=== PATIENT | male | born 1940 | race Caucasian/White ===

== ENCOUNTER 2017-03-29 11:07 | Inpatient (IN) | payer MEDICARE, OTHER ==
[2017-03-29 11:19] VITALS: BMI 27.4
[2017-03-29] MEDS ORDERED: ASPIRIN COATED 81 MG TABLET.EC PO ONE (11:56)
--- NOTE | 2017-03-29 11:56 | PDOC ---
History of Present Illness - General Chief Complaint: Chest Pain Stated Complaint: CHEST PAIN Time Seen by Provider: 03/29/17 11:26 History Source: Patient, Family Exam Limitations: No Limitations - History of Present Illness Initial Comments: 03/29/17 11:43 The patient is a 76M with a PMH of HTN, DM, [place] s/p CABG in 2006 who presents to the ED with CP which started at 0830 this morning. The pain is located on the L side of his chest, is described as pressure, unsure if there is radiation, 8/10 and does not get better or worse with anything. The patient states that last week he had a similar episode of CP which resolved after an hour. He states that this pain is similar to the ID he had in the past. The patient also endorsed numbness in the L arm during this episode as well as diaphoresis and nausea. The patient states that he sees Dr. Robertson and had an echo done last week which was normal. Past History - Past Medical History Allergies/Adverse Reactions: Allergies Allergy/AdvReac Type Severity Reaction Status Date / Time No Known Allergies Allergy Verified 03/29/17 11:15 Cardiac Disorders: Yes (cad) Diabetes: Yes (niddm) HTN: Yes - Surgical History Cardiac Surgery: Yes (cabg, stents x2) - Suicide/Smoking/Psychosocial Hx Smoking History: Former smoker Have you smoked in the past 12 months: Yes Number of Cigarettes Smoked Daily: 5 If you are a former smoker, when did you quit?: 5 Information on smoking cessation initiated: Yes 'Breaking Loose' booklet given: 03/29/17 Hx Alcohol Use: No Drug/Substance Use Hx: No Review of Systems - Review of Systems Able to Perform ROS?: Yes Is the patient limited Divehi proficient: No Constitutional: No: Chills, Fever HEENTM: No: Eye Pain, Blurred Vision Respiratory: Yes: Shortness of Breath. No: Cough Cardiac (ROS): Yes: Chest Pain, Other (chest pressure) ABD/GI: No: Nausea, Vomiting : No: Burning, Dysuria, Discharge Integumentary: No: Lesions, Rash Neurological: Yes: Numbness (in L arm). No: Headache, Tingling, Weakness *Physical Exam - Vital Signs Last Vital Signs Temp Pulse Resp BP Pulse Ox 98.3 F 54 L 18 133/68 100 03/29/17 11:15 03/29/17 11:15 03/29/17 11:15 03/29/17 11:15 03/29/17 11:15 - Physical Exam General Appearance: Yes: Nourished, Appropriately Dressed. No: Apparent Distress HEENT: positive: Normal Voice, Hearing Grossly Normal Respiratory/Chest: positive: Lungs Clear, Normal Breath Sounds. negative: Chest Tender, Respiratory Distress, Accessory Muscle Use Cardiovascular: positive: Regular Rhythm, Regular Rate, S1, S2. negative: Diastolic Murmur, Systolic Murmur Gastrointestinal/Abdominal: positive: Flat, Soft. negative: Tender, Distended, Guarding, Rebound, Tenderness Musculoskeletal: negative: CVA Tenderness, CVA Tenderness (R), CVA Tenderness (L ) Extremity: positive: Normal Inspection. negative: Coldness, Swelling Integumentary: positive: Dry, Warm. negative: Clammy, Diaphoresis Neurologic: positive: Fully Oriented, Alert, Normal Mood/Affect, Normal Response Heart Score/ECG Review - ECG Impressions Comment:: 03/29/17 12:07 Sinus bradycardia with q waves in V1-V3. Rate 52 No previous EKG to compare to. ED Treatment Course - LABORATORY CBC & Chemistry Diagram: 03/29/17 11:55 - RADIOLOGY Radiology Studies Ordered: Category Date Time Status CHEST X-RAY PORTABLE* [RAD] Stat Radiology 03/29/17 11:37 Ordered Medical Decision Making - Medical Decision Making 03/29/17 12:08 The patient is a 76M with a PMH of ID in 2006 s/p CABG, DM, HTN who presents with CP since 830 this morning which is slowly resolving. I am concerned for ACS and will order the following: - EKG - CBC - CMP - Cardiac profile - CXR I will reassess when these return. The patient's HEART score is 6 without troponin's considered. 03/29/17 12:33 Trop 0.02. HEART score remains at 6, moderate risk. Dr. Robertson will be paged for recs. 03/29/17 12:39 Dr. Robertson would like the patient admitted to tele with Dr. Lane consulted for cardiology. *DC/Admit/Observation/Transfer Diagnosis at time of Disposition: Chest pain Qualifiers: Chest pain type: chest pain due to myocardial ischemia Ischemic chest pain type : other angina pectoris type Qualified Code(s): I20.8 - Other forms of angina pectoris - Referrals
[2017-03-29] MEDS ORDERED: NITROGLYCERIN SUBLINGUAL 1/150 0.4 MG TAB SL ONE (11:58)
[2017-03-29 12:16] LABS: BASOPHIL 0.6 % (0-2.0); EOSINOPHIL 1.5 % (0-4.5); MCH 27.4 pg (25.7-33.7); MCHC 31.4 g/dl (32.0-35.9); MEAN CELL VOLUME 87.2 fl (80-96); MEAN PLT VOLUME 9.8 fl (7.5-11.1); NEUTROPHILS 68.5 % (42.8-82.8); PLATELET COUNT 222 K/MM3 (134-434); RDW 16.4 % (11.9-15.9); WHITE BLOOD COUNT 7.3 K/mm3 (4.0-10.0)
[2017-03-29 12:26] LABS: TROPONIN I 0.02 ng/ml (0.00-0.05)
[2017-03-29 12:27] LABS: CPK 123 IU/L (39-308)
[2017-03-29] MEDS ORDERED: ASPIRIN 325 MG TABLET ONE (12:32)
--- NOTE | 2017-03-29 12:59 | PDOC ---
Attending Attestation - Resident Resident Name: Konstantin Trent - ED Attending Attestation I have performed the following: I have examined & evaluated the patient, The case was reviewed & discussed with the resident, I agree w/resident's findings & plan, Exceptions are as noted - HPI HPI: 03/29/17 12:57 76 M with HTN, DM, [place] s/p CABG in 2006 presenting to ER with 1 day of midsternal chest pressure. Pt denies SOB. States that the pain is similar to his prior CO. No F/C. Deneis pleuritic or exertional component. No cough. No leg swelling. No recent travel/immobilization. No orthopnea. - Physicial Exam PE: 03/29/17 12:58 "GENERAL: Awake, alert, and fully oriented, in no acute distress HEAD: No signs of trauma EYES: PERRLA, EOMI, sclera anicteric, conjunctiva clear ENT: Auricles normal inspection, hearing grossly normal, nares patent, oropharynx clear without exudates. Moist mucosa NECK: Normal ROM, supple, no lymphadenopathy, JVD, or masses LUNGS: Breath sounds equal, clear to auscultation bilaterally. No wheezes, and no crackles HEART: Regular rate and rhythm, normal S1 and S2, no murmurs, rubs or gallops ABDOMEN: Soft, nontender, normoactive bowel sounds. No guarding, no rebound. No masses EXTREMITIES: Normal range of motion, no edema. No clubbing or cyanosis. No cords, erythema, or tenderness NEUROLOGICAL: Cranial nerves II through XII grossly intact. Normal speech, normal gait SKIN: Warm, Dry, normal turgor, no rashes or lesions noted. " - Medical Decision Making 03/29/17 12:58 76 M with chest pressure at rest, concerning for unstable angina/ACS. EKG today with no acute ischemic changes. PE unlikely as pt with no SOB, no hypoxia or tachycardia. Dissection unlikely as pt is midsternal, non-radiating. - Labs, trop - CXR - Call pt's coil builder, Dr. Lane - Admit tele
[2017-03-29 13:36] LABS: ALBUMIN 3.2 g/dl (3.4-5.0); ALK PHOS 60 U/L (45-117); ANION GAP 8 (8-16); BILIRUBIN,TOTAL 0.3 mg/dL (0.2-1.0); CO2 22 mmol/L (21-32); CREATININE 1.5 mg/dL (0.7-1.3); GLUCOSE,RANDOM 175 mg/dL (74-106); SGPT/ALT 15 U/L (12-78); TOT PROT 6.5 g/dl (6.4-8.2)
[2017-03-29 13:39] LABS: SGOT/AST 20 U/L (15-37)
[2017-03-29] MEDS ORDERED: SODIUM CHLORIDE 0.9% 1000 ML INFUS.BAG IV ONE (13:56)
--- NOTE | 2017-03-29 14:47 | CON.CARD ---
Consult Consult Specialty:: Cardiology Referred by:: Howard Robertsno Reason for Consultation:: Chest pain - History of Present Illness Chief Complaint: Chest pain History of Present Illness: 76 year old male with a pmhx of htn, dm, mild CKD, and CAD s/p CABG in 2006 with possible stent 2 years ago (in [place]) who presents with chest pain. This morning the patient developed acute left sided crushing chest pain. Pain was non-radiating and lasted 20 minutes or so. Pain described as a weight on his chest. Took an imdur cause has them from before and helped alleviate the pain. Currently comfortable. No sob, palpitations. No pnd, orthopnea, or edema. To note, reports that a couple weeks ago had similar episode but not as severe. Also notes that over last few months has been feeling more short of breath with activity. - History Source History Provided By: Patient, Family Member, Medical Record - Past Medical History Cardio/Vascular: Yes: CAD, HTN Endocrine: Yes: Diabetes Mellitus - Past Surgical History Past Surgical History: Yes: CABG - Alcohol/Substance Use Hx Alcohol Use: No - Smoking History Smoking history: Former smoker Have you smoked in the past 12 months: Yes Aproximately how many cigarettes per day: 5 If you are a former smoker, when did you quit?: 5 Home Medications - Allergies Allergies/Adverse Reactions: Allergies Allergy/AdvReac Type Severity Reaction Status Date / Time No Known Allergies Allergy Verified 03/29/17 11:15 - Home Medications Home Medications: Ambulatory Orders Enalapril Maleate 2.5 mg PO DAILY 03/29/17 Iron 325 mg PO BID 03/29/17 Metoprolol Succinate [Toprol Xl] 100 mg PO DAILY 03/29/17 Sitagliptin Phos/Metformin HCl [Janumet 50-500 mg Tablet] 1 each PO DAILY Vital Signs: Vital Signs Temperature 98.3 F 03/29/17 11:15 Pulse Rate 49 L 03/29/17 13:42 Respiratory Rate 18 03/29/17 13:42 Blood Pressure 121/54 03/29/17 13:42 O2 Sat by Pulse Oximetry (%) 100 03/29/17 13:42 Constitutional: Yes: No Distress Neck: Yes: Supple Respiratory: Yes: CTA Bilaterally Gastrointestinal: Yes: Normal Bowel Sounds, Soft Cardiovascular: Yes: WNL JVD: No Carotid Bruit: No Heart Sounds: Yes: S1, S2 Murmur: No: Systolic Murmur Extremities: Yes: WNL Edema: No - Other Data sinus rhythm at 52bpm, nl axis, anteroseptal infarct pattern, no acute ekg changes. Echo: Report Reviewed Imaging - Results Chest X-ray: Report Reviewed EKG: Image Reviewed Assessment/Plan 76 year old male with a pmhx of htn, dm, mild CKD, and CAD s/p CABG in 2006 with possible stent 2 years ago (in [place]) who presents with chest pain. -EKG with no acute ischemic changes Echocardiogram as outpatient on 03/03/17 with reported normal LVEF and no significant valve disease. Would admit to telemetry Aspirin 81mg daily Start atorvastatin 40mg daily unless contraindicated. Trend cardiac enzymes which are negative first set. Restart home metoprolol dose Hold enalapril Admit to telemetry but with plan for transfer to [facility] for possible cardiac cath. Discussed benefits and risks including not limited to bleeding, infection, vascular damage, allergy, renal damage, heart attack, stroke, , and emergent surgery. Hold metformin
--- NOTE | 2017-03-29 15:09 | EKG ---
Test Reason : Blood Pressure : / mmHG Vent. Rate : 052 BPM Atrial Rate : 052 BPM P-R Int : 128 ms QRS Dur : 086 ms QT Int : 450 ms P-R-T Axes : 009 008 044 degrees QTc Int : 418 ms SINUS BRADYCARDIA WITH SINUS ARRHYTHMIA CANNOT RULE OUT ANTEROSEPTAL INFARCT , AGE UNDETERMINED ABNORMAL ECG NO PREVIOUS ECGS AVAILABLE Confirmed by WILL SHAH MD ([id number]) on 03/29/2017 3:09:10 PM Referred By: Confirmed By:WILL SHAH MD
--- NOTE | 2017-03-29 16:36 | HP ---
Admitting History and Physical - Primary Care Physician PCP: Howard Robertson - Admission Chief Complaint: CHESTR PAIN ACUTE CORONARY SYNDROME History of Present Illness: The patient is a 76M with a PMH of HTN, DM, [place] s/p CABG in 2006 who presents to the ED with CP which started at 0830 this morning. The pain is located on the L side of his chest, is described as pressure, unsure if there is radiation, 8/10 and does not get better or worse with anything. The patient states that last week he had a similar episode of CP which resolved after an hour. He states that this pain is similar to the [place] he had in the past. The patient also endorsed numbness in the L arm during this episode as well as diaphoresis and nausea. The patient states that he sees Dr. Robertson and had an echo done last week which was normal. History Source: Patient - Past Medical History Cardiovascular: Yes: CAD, HTN Endocrine: Yes: Diabetes Mellitus - Past Surgical History Past Surgical History: Yes: CABG - Smoking History Smoking history: Former smoker Have you smoked in the past 12 months: Yes Aproximately how many cigarettes per day: 5 If you are a former smoker, when did you quit?: 5 - Alcohol/Substance Use Hx Alcohol Use: No Home Medications - Allergies Allergies/Adverse Reactions: Allergies Allergy/AdvReac Type Severity Reaction Status Date / Time No Known Allergies Allergy Verified 03/29/17 11:15 - Home Medications Home Medications: Ambulatory Orders Enalapril Maleate 2.5 mg PO DAILY 03/29/17 Iron 325 mg PO BID 03/29/17 Metoprolol Succinate [Toprol Xl] 100 mg PO DAILY 03/29/17 Sitagliptin Phos/Metformin HCl [Janumet 50-500 mg Tablet] 1 each PO DAILY Review of Systems - Review of Systems Constitutional: reports: Malaise, Weakness Eyes: reports: No Symptoms HENT: reports: No Symptoms Neck: reports: No Symptoms Cardiovascular: reports: Chest Pain, Palpitations, Shortness of Breath Respiratory: reports: Cough, SOB Gastrointestinal: reports: No Symptoms Genitourinary: reports: No Symptoms Musculoskeletal: reports: No Symptoms Integumentary: reports: No Symptoms Neurological: reports: No Symptoms Endocrine: reports: No Symptoms Hematology/Lymphatic: reports: No Symptoms Psychiatric: reports: No Symptoms Physical Examination Vital Signs: Vital Signs Temperature 98.5 F 03/29/17 14:43 Pulse Rate 53 L 03/29/17 14:43 Respiratory Rate 18 03/29/17 14:43 Blood Pressure 139/72 03/29/17 14:43 O2 Sat by Pulse Oximetry (%) 100 03/29/17 13:42 Constitutional: Yes: Mild Distress Eyes: Yes: WNL HENT: Yes: WNL Neck: Yes: WNL Cardiovascular: Yes: WNL Respiratory: Yes: WNL Gastrointestinal: Yes: WNL Musculoskeletal: Yes: WNL Extremities: Yes: WNL Edema: No Peripheral Pulses WNL: Yes Integumentary: Yes: WNL Wound/Incision: Yes: Clean/Dry Neurological: Yes: WNL ...Motor Strength: WNL Psychiatric: Yes: WNL Problem List - Problems (1) Chest pain Code(s): R07.9 - CHEST PAIN, UNSPECIFIED Qualifiers: Chest pain type: chest pain due to myocardial ischemia Ischemic chest pain type: other angina pectoris type Qualified Code(s): I20.8 - Other forms of angina pectoris; I20.8 - Other forms of angina pectoris; I20.8 - Other forms of angina pectoris; I20.8 - Other forms of angina pectoris (2) Acute coronary syndrome Code(s): I24.9 - ACUTE ISCHEMIC HEART DISEASE, UNSPECIFIED (3) DMII (diabetes mellitus, type 2) Code(s): E11.9 - TYPE 2 DIABETES MELLITUS WITHOUT COMPLICATIONS Qualifiers: Diabetes mellitus complication status: with kidney complications (4) CRI (chronic renal insufficiency) Code(s): N18.9 - CHRONIC KIDNEY DISEASE, UNSPECIFIED (5) Lipidemia Code(s): E78.5 - HYPERLIPIDEMIA, UNSPECIFIED Assessment/Plan DISCUSSED WITH DR [facility] WILL TRANSFER FOR CARDIAC CATH IVF MUCOMYST FOR CRI MONITOR AND WORKUP STARTED ON TELEMETRY OUTPATIENT FOLLOW UP MY OFFICE POST CARDIAC CATH
[2017-03-29] MEDS ORDERED: ACETAMINOPHEN 325 MG TABLET (FP) PO PRN (16:37)
--- NOTE | 2017-03-29 16:39 | DS ---
Physical Examination Vital Signs: Vital Signs Temperature 98.5 F 03/29/17 14:43 Pulse Rate 53 L 03/29/17 14:43 Respiratory Rate 18 03/29/17 14:43 Blood Pressure 139/72 03/29/17 14:43 O2 Sat by Pulse Oximetry (%) 100 03/29/17 13:42 Findings/Remarks: SEE HISTORY AND PHYSICAL JUST COMPLETED Constitutional: Yes: Mild Distress Discharge Summary Reason For Visit: CHEST PAIN Current Active Problems Acute coronary syndrome (Acute) CRI (chronic renal insufficiency) (Acute) Chest pain (Acute) DMII (diabetes mellitus, type 2) (Acute) Lipidemia (Acute) Procedures: Principal: LABS Other Procedures: CXR/EKG Hospital Course: TRANSFERRING FOR ACUTE CORONARY SYNDROME TO [facility] FOR CARDIAC CATH Condition: Fair - Instructions Diet, Activity, Other Instructions: DIABETIC LOW SODIUM SEE DR VERN ROBERTSON IN 1 WEEK Referrals: Vern Robertson MD [Primary Care Provider] - Disposition: TRANSFER ACUTE CARE/OTHER HOSP - Home Medications Comprehensive Discharge Medication List: Ambulatory Orders Enalapril Maleate 2.5 mg PO DAILY 03/29/17 Iron 325 mg PO BID 03/29/17 Metoprolol Succinate [Toprol Xl] 100 mg PO DAILY 03/29/17 Sitagliptin Phos/Metformin HCl [Janumet 50-500 mg Tablet] 1 each PO DAILY
[2017-03-29] MEDS ORDERED: ATORVASTATIN CA 10 MG TABLET (FP) PO SCH (22:00)
[2017-03-30 02:47] VITALS: BP 122/64; PULSE 55; TEMP 98.2
[2017-03-30] MEDS ORDERED: sitaGLIPtin PHOSPHATE 25 MG TABLET (FP) PO SCH (07:00)
[2017-03-30] MEDS ORDERED: ASPIRIN COATED 81 MG TABLET.EC PO SCH (10:00)
[2017-03-30] MEDS ORDERED: METOPROLOL SUCCINATE 100 MG TAB.SR.24H (FP) PO SCH (10:00)
[2017-03-30] MEDS ORDERED: ASPIRIN COATED 81 MG TABLET.EC PO ONE (11:56)
== END 2017-03-29 21:40 | disposition short-term general hospital (02) | DRG 311 ==
LOC: JER 11:07 → JERBED 12:38 → J4W 14:00
PROVIDERS: ADMIT Family Medicine; ATTEND Family Medicine
DX: I24.9 Acute ischemic heart disease, unspecified (principal); I25.10 Atherosclerotic heart disease of native coronary artery without angina pectoris; I25.2 Old myocardial infarction; E78.5 Hyperlipidemia, unspecified; R07.89 Other chest pain; I12.9 Hypertensive chronic kidney disease with stage 1 through stage 4 chronic kidney disease, or unspecified chronic kidney disease; E11.22 Type 2 diabetes mellitus with diabetic chronic kidney disease; N18.9 Chronic kidney disease, unspecified; Z95.5 Presence of coronary angioplasty implant and graft; Z87.891 Personal history of nicotine dependence; Z95.1 Presence of aortocoronary bypass graft
CPT/HCPCS: 36415; 71010-TC; 80053; 84484; 85025; 85027; 93005; 93010; 99285-25

== ENCOUNTER 2018-03-05 08:52 | Emergency (ER) | payer MEDICARE, OTHER ==
[2018-03-05 09:03] VITALS: BP 124/68; PULSE 81; TEMP 98.5; BMI 26.9
--- NOTE | 2018-03-05 11:02 | PDOC ---
History of Present Illness - General Chief Complaint: Hemorrhoids Stated Complaint: BACK PAIN Time Seen by Provider: 03/05/18 09:23 History Source: Patient Exam Limitations: No Limitations - History of Present Illness Initial Comments: 03/05/18 11:02 Pt is a 77 y/o M who presents to the ED for possible hemorrhoids. Pt's family member is at bedside and states that he has felt pain near his rectum for the past 4 days. Pt was seen by his PCP who thought it might be hemorrhoids and prescribed a cream. Pt states the cream has not helped and that the area is tender to touch and it hurts to sit. Denies drainage from the area of pain. Denies fevers, chills, n/v/d, constipation, frequency, urgency, hematuria. Past History - Travel Traveled outside of the country in the last 30 days: No Close contact w/someone who was outside of country & ill: No - Past Medical History Allergies/Adverse Reactions: Allergies Allergy/AdvReac Type Severity Reaction Status Date / Time No Known Allergies Allergy Verified 03/05/18 08:57 Home Medications: Ambulatory Orders Acetaminophen [Tylenol .Regular Strength -] 650 mg PO Q6H PRN #0 tablet Atorvastatin Ca [Lipitor] 10 mg PO HS tablet 03/29/17 Enalapril Maleate 2.5 mg PO DAILY 03/29/17 Iron 325 mg PO BID 03/29/17 Metoprolol Succinate [Toprol Xl] 100 mg PO DAILY 03/29/17 Sitagliptin Phos/Metformin HCl [Janumet 50-500 mg Tablet] 1 each PO DAILY Sulfamethoxazole/Trimethoprim [Bactrim Ds -] 1 tab PO BID #14 tablet 03/05/18 Cardiac Disorders: Yes (cad) COPD: No Diabetes: Yes (niddm) HTN: Yes - Surgical History Cardiac Surgery: Yes (cabg, stents x2) - Suicide/Smoking/Psychosocial Hx Smoking History: Current every day smoker Have you smoked in the past 12 months: Yes Number of Cigarettes Smoked Daily: 5 If you are a former smoker, when did you quit?: 5 Information on smoking cessation initiated: No 'Breaking Loose' booklet given: 03/29/17 Hx Alcohol Use: No Drug/Substance Use Hx: No Review of Systems - Review of Systems Able to Perform ROS?: Yes Is the patient limited [place]alan proficient: No Constitutional: No: Chills, Fever, Weakness ABD/GI: No: Constipated, Diarrhea, Nausea, Vomiting : Yes: Pain (near the rectum). No: Dysuria, Frequency, Flank Pain, Hematuria Integumentary: Yes: Erythema, Lumps (pt reports possible hemorroid) Neurological: No: Numbness, Weakness All Other Systems: Reviewed and Negative *Physical Exam - Vital Signs Last Vital Signs Temp Pulse Resp BP Pulse Ox 98.5 F 81 18 124/68 97 03/05/18 08:57 03/05/18 08:57 03/05/18 08:57 03/05/18 08:57 03/05/18 08:57 - Physical Exam General Appearance: Yes: Nourished, Appropriately Dressed. No: Apparent Distress (Pt sitting on exam chair, breathing easily, AAOX3) Gastrointestinal/Abdominal: positive: Flat, Soft. negative: Tender, Guarding, Rebound, Tenderness Rectal Exam: positive: deferred (internal), other (abscess to the L medial gluteal fold.). negative: hemorrhoids Integumentary: positive: Dry, Warm, Erythema (with fluctuance measuring approximately 5cm to the L medial gluteal fold.) Neurologic: positive: Fully Oriented, Alert, Normal Mood/Affect, Normal Response Procedures - Incision and Drainage I&D Site: Left: Buttock (Medial aspect of the gluteal fold.) Betadine cleansed: Yes Anesthesia: 1% Lidocaine Volume(ml): 5 Blade Size: 11 Attempts: 1 Iodinated Packin/4 in Medical Decision Making - Medical Decision Making 03/05/18 11:08 Pt is a 77 y/o M who presents to the ED for possible hemorrhoids. -On exam, pt with fluctuant abscess to the L medial gluteal fold measuring approximately 5cm -No evidence of external hemorrhoids -I&D performed in the ED. -Area cleansed with betadine. 5cc of 1% lidocaine used for anesthesia. 11 blade used to make a 1cm incision over the area of fluctuance. -Large amount to purulent fluid expressed from the absecss. Wound culture taken -Area was explored and loculations were broken up. Area was flushed with 20cc's of normal saline -Wound packed with 1/4 iodinated packing -Pt tolerated procedure well. -Pt instructed to f/u back in 2 days for a wound check -Keflex and Bactrim prescribed -DC home. Return precautions given. Pt understands all dc instructions and all questions were answered. *DC/Admit/Observation/Transfer Diagnosis at time of Disposition: Abscess - Discharge Dispostion Disposition: HOME Condition at time of disposition: Stable Decision to Admit order: No - Prescriptions Prescriptions: Sulfamethoxazole/Trimethoprim [Bactrim Ds -] 1 tab PO BID #14 tablet - Referrals Referrals: Howard Robertson MD [Primary Care Provider] - - Patient Instructions Printed Discharge Instructions: DI for Skin Abscess Additional Instructions: You have an abscess that was drained today. This is a skin infection. Please take the Bactrim and Keflex twice a day for one week. Please take all the antibiotics even if you feel better. Please avoid shaving the skin around the area of redness. You may take Tylenol or Motrin as needed for pain. Return to the ED in 2 days to have a wound check and have the packing removed. Return to the emergency department if you have worsening redness, fevers, increasing pain, or have any changes in your symptoms. - Post Discharge Activity
== END 2018-03-05 11:43 | disposition home or self-care (01) ==
LOC: JERFT 08:52
PROC: 0J990ZZ Drainage of Buttock Subcutaneous Tissue and Fascia, Open Approach (ICD-10-PCS; principal; 2018-03-05)
DX: L02.31 Cutaneous abscess of buttock (principal); B96.89 Other specified bacterial agents as the cause of diseases classified elsewhere
CPT/HCPCS: 10060; 87070; 87186; 87205; 99281-25

== ENCOUNTER 2018-03-07 15:42 | Inpatient (IN) | payer MEDICARE ==
--- NOTE | 2018-03-07 16:06 | PDOC ---
History of Present Illness - General Chief Complaint: Revisit,Wound Recheck Stated Complaint: FOLLOW UP/SEEN 03/05/18 Time Seen by Provider: 03/07/18 16:05 History Source: Patient Exam Limitations: No Limitations - History of Present Illness Initial Comments: 03/07/18 16:40 Mr. Carson is a 77 yo M with a hx of IDDM, HTN, [place] with CABG 2006, and recent I& D of left gluteal fold abscess on 03/05/2018 who presents to the emergency department with wound check with continued purulent discharge. He states he has been experiencing weakness for the past two days but denies fever, chills, SOB, and chest pain. Per the , she has been having difficulties feeding him the past 1 week due to poor appetite. He denies nausea and vomiting. The site of drainage was missing the packing (likely fell out) and he describes having some pain in the area. Denies the following: headache, abdominal pain, dysuria, hematuria, leg pain and swelling, melena, loss of motor function and sensation in the LE, incontinence, and coordination difficulties. Pmhx: Refer to above Shx: CABG Meds: Novalog, losartan, metoprolol, and aspirin 81 mg. Was prescribed bactrim DS for outpatient use after ID. Allergies: NKDA Social: Denies substance abuse and alcohol. Endorses smoking 2 packs per day. 03/07/18 16:43 Past History - Past Medical History Allergies/Adverse Reactions: Allergies Allergy/AdvReac Type Severity Reaction Status Date / Time No Known Allergies Allergy Verified 03/05/18 08:57 Home Medications: Ambulatory Orders Acetaminophen [Tylenol .Regular Strength -] 650 mg PO Q6H PRN #0 tablet Atorvastatin Ca [Lipitor] 10 mg PO HS tablet 03/29/17 Enalapril Maleate 2.5 mg PO DAILY 03/29/17 Iron 325 mg PO BID 03/29/17 Metoprolol Succinate [Toprol Xl] 100 mg PO DAILY 03/29/17 Sitagliptin Phos/Metformin HCl [Janumet 50-500 mg Tablet] 1 each PO DAILY Sulfamethoxazole/Trimethoprim [Bactrim Ds -] 1 tab PO BID #14 tablet 03/05/18 Cardiac Disorders: Yes (cad) COPD: No DVT: No Diabetes: Yes (niddm) HTN: Yes - Surgical History Cardiac Surgery: Yes (cabg, stents x2) - Suicide/Smoking/Psychosocial Hx Smoking History: Current every day smoker Have you smoked in the past 12 months: Yes Number of Cigarettes Smoked Daily: 6 If you are a former smoker, when did you quit?: 5 Information on smoking cessation initiated: No 'Breaking Loose' booklet given: 03/29/17 Hx Alcohol Use: No Drug/Substance Use Hx: No Review of Systems - Review of Systems Able to Perform ROS?: Yes Constitutional: Yes: Weakness. No: Chills, Diaphoresis, Fever HEENTM: No: Recent change in vision, Ear Pain, Nose Pain, Throat Pain, Mouth Pain Respiratory: No: Cough, Shortness of Breath Cardiac (ROS): No: Chest Pain, Edema, Lightheadedness, Palpitations, Syncope, Chest Tightness ABD/GI: Yes: Poor Appetite. No: Constipated, Diarrhea, Nausea, Poor Fluid Intake, Rectal Bleeding, Vomiting, Indigestion, Abdominal cramping, Tarry Stools : No: Burning, Dysuria, Flank Pain Musculoskeletal: Yes: Other (left gluteal fold pain). No: Back Pain Integumentary: No: Bruising, Rash Neurological: Yes: Weakness. No: Headache, Numbness, Paresthesia, Seizure, Tingling, Tremors, Ataxia, Dizziness Psychiatric: No: Stressors Endocrine: No: Unexplained Weight Gain Hematologic/Lymphatic: No: Anemia *Physical Exam - Vital Signs Last Vital Signs Temp Pulse Resp BP Pulse Ox 98 F 110 H 18 90/48 98 03/07/18 15:45 03/07/18 15:45 03/07/18 15:45 03/07/18 15:45 03/07/18 15:45 - Physical Exam General Appearance: Yes: Nourished, Appropriately Dressed HEENT: positive: EOMI, ALBERTO, Normal Voice, Symmetrical Neck: positive: Trachea midline. negative: Lymphadenopathy (R), Lymphadenopathy (L) Respiratory/Chest: positive: Lungs Clear, Normal Breath Sounds. negative: Chest Tender, Respiratory Distress, Accessory Muscle Use Cardiovascular: positive: Regular Rhythm, S1, S2, Tachycardia. negative: Systolic Murmur Vascular Pulses: Dorsalis-Pedis (R): 3+, Doralis-Pedis (L): 3+ Gastrointestinal/Abdominal: positive: Normal Bowel Sounds. negative: Tender Rectal Exam: positive: other (left gluteal fold abscess without packing draining purulent discharge yellow/white. Erythema in the area with some retained fluctaunce below the site of incision with tenderness to palpation) Lymphatic: negative: Adenopathy Musculoskeletal: positive: Normal Inspection. negative: CVA Tenderness Extremity: positive: Normal Capillary Refill, Normal Inspection, Normal Range of Motion. negative: Tender Integumentary: positive: Normal Color, Dry, Warm Neurologic: positive: consulting application engineer II-XII NML intact, Fully Oriented, Alert, Normal Mood/ Affect, Normal Response, Motor Strength 10/23 ED Treatment Course - LABORATORY CBC & Chemistry Diagram: 03/07/18 16:53 03/07/18 23:10 Medical Decision Making - Medical Decision Making 77 yo M with CAD s/p CABG 2007, IDDM, and HTN presents to the emergency department for wound check of ID on 03/05/18 of left gluteal fold abscess with continued purulent discharge concerning for possible systemic infection. Initial vitals: POC BG was 324 at 4:35 pm. 03/07/18 17:03 Initial Vital Signs Temp Pulse Resp BP Pulse Ox 98 F 110 H 18 90/48 98 03/07/18 15:45 03/07/18 15:45 03/07/18 15:45 03/07/18 15:45 03/07/18 15:45 ddx: sepsis possibly 2/2 to wound in left gluteal fold (given bactrim and both bacterias in the wound culture were sensitive to it), incomplete ID, cellulitis , nec fasc, suboptimal treatment Work up: Concerns given that he is IDDM (last A1C was 15.[address] Robertson's office last week), he may have compromised vascular flow to the area rendering oral abx suboptimal. Will order CBC and CMP to assess for leukocytosis and metabolic disturbances. Laboratory Tests 03/07/18 03/07/18 16:53 16:53 WBC 12.8 H RBC 4.33 Hgb 11.5 L Hct 35.1 L MCV 81.2 MCH 26.6 MCHC 32.8 RDW 13.9 D Plt Count 404 D MPV 9.0 Absolute Neuts (auto) 11.0 H Neutrophils % 86.1 H D Lymphocytes % 7.6 L D Monocytes % 5.5 Eosinophils % 0.3 Basophils % 0.5 Nucleated RBC % 0 Sodium 135 L Potassium 4.4 Chloride 97 L Carbon Dioxide 24 Anion Gap 14 BUN 34 H Creatinine 2.3 H Creat Clearance w eGFR 27.78 Random Glucose 305 H* Calcium 8.1 L Total Bilirubin 0.2 AST 21 ALT 27 Alkaline Phosphatase 77 Total Protein 6.2 L Albumin 2.2 L WBC is elevated at 12.8 with a creatinine of 2.3 with a BUN of 34. He is very dehydrated per the . We treated him with 500 mL of NS and it improved his BP to 102/58 with 84 bpm. Ordering a second set of 500 mL NS. Spoke to Dr. Robertson on the phone and he indicated that he did not have an elevated WBC in the office last week and wants to bring him in for IV antibiotics. Dispo: Admit 03/07/18 17:47 *DC/Admit/Observation/Transfer Diagnosis at time of Disposition: Abscess - Discharge Dispostion Decision to Admit order: Yes - Referrals - Patient Instructions - Post Discharge Activity
[2018-03-07] MEDS ORDERED: SODIUM CHLORIDE 500 ML IV STA ×2 (16:35→17:47)
--- NOTE | 2018-03-07 16:39 | PDOC ---
Attending Attestation - Medical Decision Making 03/07/18 17:[address] Robertson, patient's PCP, case was discussed with resident. 5:38pm Call placed to Dr. Aden, JACKELYN, awaiting call back. <Aramis Meredith - Last Filed: 03/07/18 17:38> - Resident Resident Name: Suraj Fung - ED Attending Attestation I have performed the following: I have examined & evaluated the patient, The case was reviewed & discussed with the resident, I agree w/resident's findings & plan, Exceptions are as noted - HPI HPI: 03/07/18 16:36 77 yo male presents for wound check of left buttocks abscess that was I and D several days ago and he was started on bactrim -rectal temp 99.3 - Physicial Exam PE: 03/07/18 16:39 [id number] 77 yo ,pamela with left buttocks abscess head nca necj supple lungs cta b/l cvs [id number] abd soft,nontender buttocks there is a 4mm incision w purulence draining and a 4cm area of induration ext no edema neuro axox3,ambulatory skin warm and dry 03/07/18 16:40 - Medical Decision Making 03/07/18 17:47 pt has been taking Bactrim but still has significant purulence -pt will need IV antibiotics,hydration and possible surgical consult Dr Robertson agrees w med/surg admission <Rosetta Servin - Last Filed: 03/07/18 17:48> Attestations - Attestations 03/07/18 17:40 Documentation prepared by Aramis Meredith, acting as medical unit secretary for Rosetta Servin MD. <Aramis Meredith - Last Filed: 03/07/18 17:38>
[2018-03-07 17:13] LABS: BASO % 0.5 % (0-2.0); EOS % 0.3 % (0-4.5); HEMATOCRIT 35.1 % (35.4-49); HEMOGLOBIN 11.5 GM/dL (11.7-16.9); LYMPH % 7.6 % (8-40); MCH 26.6 pg (25.7-33.7); MCHC 32.8 g/dl (32.0-35.9); MEAN CELL VOLUME 81.2 fl (80-96); MONO % 5.5 % (3.8-10.2); NEUT % 86.1 % (42.8-82.8); PLATELET COUNT 404 K/MM3 (134-434); RBC 4.33 M/mm3 (4.00-5.60); RDW 13.9 % (11.9-15.9); WHITE BLOOD COUNT 12.8 K/mm3 (4.0-10.0)
[2018-03-07 17:40] LABS: ALBUMIN 2.2 g/dl (3.4-5.0); ANION GAP 14 MMOL/L (8-16); BILIRUBIN,TOTAL 0.2 mg/dL (0.2-1); BLOOD UREA NITROGEN 34 mg/dL (7-18); CALCIUM 8.1 mg/dL (8.5-10.1); CHLORIDE 97 mmol/L (98-107); CO2 24 mmol/L (21-32); CREATININE 2.3 mg/dL (0.55-1.3); POTASSIUM 4.4 mmol/L (3.5-5.1); SGOT/AST 21 U/L (15-37); SGPT/ALT 27 U/L (13-61); SODIUM 135 mmol/L (136-145); TOT PROT 6.2 g/dl (6.4-8.2)
[2018-03-07 17:41] LABS: ALK PHOS 77 U/L (45-117)
[2018-03-07 17:44] LABS: GLUCOSE,RANDOM 305 mg/dL (74-106)
[2018-03-07] MEDS ORDERED: AMPICILLIN NA/SULBACTAM NA 3 GM in SODIUM CHLORIDE 100 ML IVPB ONE (18:06)
[2018-03-07] MEDS ORDERED: VANCOMYCIN 1,250 MG in DEXTROSE 5%-WATER - 250 ML IVPB ONE (19:25)
[2018-03-07] MEDS ORDERED: ACETAMINOPHEN 325 MG TABLET (FP) PO PRN (19:39)
--- NOTE | 2018-03-07 19:40 | HP ---
CHIEF COMPLAINT: Gluteal abscess PCP: Dr. Robertson HISTORY OF PRESENT ILLNESS: Mr. Carson is a 77 year-old male with a PMH significant for HTN, CAD s/p CABG 2007 s/p stents x 2, NIDDM, and chronic kidney disease. On 03/05 had an I&D of a left gluteal fold abscess and sent home with a prescription for Bactrim. Returned today to have packing removed, and in interim, culture results came back showing E.coli and Strep Group B. Admitted for IV antibiotics. At the time of admission found to be in acute renal failure. Also advised by patient's niece /jewel inspector that bloodwork done by Dr. Robertson today showed patient's HgbA1C 15.2. Recent Travel: No PAST MEDICAL HISTORY: Hypertension Coronary artery disease s/p CABG 2007 s/p stents x 2 NIDDM Chronic kidney disease PAST SURGICAL HISTORY: Cardiac cath 03/2017 [place]?? Social History: Smoking: active smoker Alcohol: occasional beer Drugs: no Family History: Allergies No Known Allergies Allergy (Verified 03/05/18 08:57) HOME MEDICATIONS: Home Medications Medication Instructions Recorded Acetaminophen [Tylenol .Regular 650 mg PO Q6H PRN #0 tablet 03/29/17 Strength -] Atorvastatin Ca [Lipitor] 10 mg PO HS tablet 03/29/17 Enalapril Maleate 2.5 mg PO DAILY 03/29/17 Iron 325 mg PO BID 03/29/17 Metoprolol Succinate [Toprol Xl] 100 mg PO DAILY 03/29/17 Sitagliptin Phos/Metformin HCl 1 each PO DAILY 03/29/17 [Janumet 50-500 mg Tablet] Sulfamethoxazole/Trimethoprim 1 tab PO BID #14 tablet 03/05/18 [Bactrim Ds -] REVIEW OF SYSTEMS CONSTITUTIONAL: Absent: fever, chills, diaphoresis, generalized weakness, malaise, loss of appetite, weight change HEENT: Absent: rhinorrhea, nasal congestion, throat pain, throat swelling, difficulty swallowing, mouth swelling, ear pain, eye pain, visual changes CARDIOVASCULAR: Absent: chest pain, syncope, palpitations, irregular heart rate, lightheadedness , peripheral edema RESPIRATORY: Absent: cough, shortness of breath, dyspnea with exertion, orthopnea, wheezing, stridor, hemoptysis GASTROINTESTINAL: Absent: abdominal pain, abdominal distension, nausea, vomiting, diarrhea, constipation, melena, hematochezia GENITOURINARY: Absent: dysuria, frequency, urgency, hesitancy, hematuria, flank pain, genital pain MUSCULOSKELETAL: Absent: myalgia, arthralgia, joint swelling, back pain, neck pain SKIN: +drained abscess left side of intergluteal fold, surrounding erythema; macular rash left groin Absent: rash, itching, pallor HEMATOLOGIC/IMMUNOLOGIC: Absent: easy bleeding, easy bruising, lymphadenopathy, frequent infections ENDOCRINE: Absent: unexplained weight gain, unexplained weight loss, heat intolerance, cold intolerance NEUROLOGIC: Absent: headache, focal weakness or paresthesias, dizziness, unsteady gait, seizure, mental status changes, bladder or bowel incontinence PSYCHIATRIC: Absent: anxiety, depression, suicidal or homicidal ideation, hallucinations. PHYSICAL EXAMINATION Vital Signs - 24 hr 03/07/18 03/07/18 03/07/18 15:45 16:33 19:22 Temperature 98 F 99.3 F Pulse Rate 110 H Pulse Rate [ 107 H Apical] Respiratory 18 18 Rate Blood Pressure 90/48 Blood Pressure 119/65 [Left Arm] O2 Sat by Pulse 98 97 Oximetry (%) GENERAL: Awake, alert, and fully oriented, in no acute distress. HEAD: Normal with no signs of trauma. EYES: Pupils equal, round and reactive to light, extraocular movements intact, sclera anicteric, conjunctiva clear. No lid lag. EARS, NOSE, THROAT: Ears normal, nares patent, oropharynx clear without exudates. Moist mucous membranes. NECK: Normal range of motion, supple without lymphadenopathy, JVD, or masses. LUNGS: Breath sounds equal, clear to auscultation bilaterally. No wheezes, and no crackles. No accessory muscle use. HEART: Regular rate and rhythm, S1 and S2 without murmur, rub or gallop. ABDOMEN: Soft, nontender, not distended, normoactive bowel sounds, no guarding, no rebound MUSCULOSKELETAL: Normal range of motion at all joints. No bony deformities or tenderness. No CVA tenderness. UPPER EXTREMITIES: 2+ pulses, warm, well-perfused. No cyanosis. No clubbing. No peripheral edema. LOWER EXTREMITIES: 2+ pulses, warm, well-perfused. No calf tenderness. No peripheral edema. NEUROLOGICAL: Cranial nerves II-XII intact. Normal speech. SKIN: Open incision left intergluteal fold, packing removed, no drainage seen, surrounding area of induration, erythema, mild tenderness; left groin macular rash Laboratory Results - last 24 hr 03/07/18 03/07/18 16:53 16:53 WBC 12.8 H RBC 4.33 Hgb 11.5 L Hct 35.1 L MCV 81.2 MCH 26.6 MCHC 32.8 RDW 13.9 D Plt Count 404 D MPV 9.0 Absolute Neuts (auto) 11.0 H Neutrophils % 86.1 H D Lymphocytes % 7.6 L D Monocytes % 5.5 Eosinophils % 0.3 Basophils % 0.5 Nucleated RBC % 0 Sodium 135 L Potassium 4.4 Chloride 97 L Carbon Dioxide 24 Anion Gap 14 BUN 34 H Creatinine 2.3 H Creat Clearance w eGFR 27.78 Random Glucose 305 H* Calcium 8.1 L Total Bilirubin 0.2 AST 21 ALT 27 Alkaline Phosphatase 77 Total Protein 6.2 L Albumin 2.2 L ASSESSMENT/PLAN Mr. Carson is a 77 year-old male with a PMH significant for HTN, CAD s/p CABG 2007 s/p stents x 2, IDDM, and chronic kidney disease. Admitted for gluteal abscess and MCKENZIE. Abscess left intergluteal fold --s/p I&D 03/05 --culture positive for E. coli and Group Strep B --start Unasyn; gave one dose vanc --ID to follow Acute on chronic kidney disease --Cr 2.3 --defer to Dr. Robertson for baseline value --IV fluids --renal consult NIDDM --HgbA1C 15.[address] Robertson's office --Novolog sliding scale coverage --niece/jewel inspector does grocery shopping and cooks - sugar, chocolate, ice cream regular part of meals --ear muff assembler consultation for patient education Hypertension --continue enalapril, Toprol XL Coronary artery disease --continue Toprol XL, atorvastatin DVT prophylaxis: subq heparin Visit type - Emergency Visit Emergency Visit: Yes ED Registration Date: 03/07/18 Care time: The patient presented to the Emergency Department on the above date and was hospitalized for further evaluation of their emergent condition. - New Patient This patient is new to me today: Yes Date on this admission: 03/07/18 - Critical Care Critical Care patient: No Hospitalist Screening - Colonoscopy Questionnaire Colonoscopy Questionnaire: Colonoscopy Questionnaire - Patient: 50 - 75 years old and never had a screening colonoscopy: Unknown History of colon or rectal polyps, or CA: No History of IBD, Crohn's disease or UC: No History of abdominal radiation therapy as a child: No - Relative: 1 with colon or rectal CA, or polyps at age 60 or younger: Unknown Colon or rectal CA diagnosed at age 45 or younger: Unknown Multiple relatives with colon or rectal CA: Unknown - Outcome: Screening Result: Negative Screen
[2018-03-07] MEDS ORDERED: SODIUM CHLORIDE 1,000 ML IV SCH (19:45)
--- NOTE | 2018-03-07 21:18 | CONSULT ---
Consult Consult Specialty:: General Surgery Reason for Consultation:: left gluteal abscess - History of Present Illness Chief Complaint: gluteal abscess History of Present Illness: 77 yo male PMH IDDM, HTN, [place] with CABG 2006, and recent I&D of left gluteal fold abscess on 03/05/2018 who presents to the emergency department with wound check with continued purulent discharge. He states he has been experiencing weakness for the past two days but denies fever, chills, SOB, and chest pain. Per the , she has been having difficulties feeding him the past 1 week due to poor appetite. He denies nausea and vomiting. The site of drainage was missing the packing (likely fell out) and he describes having some pain in the area. Denies the following: headache, abdominal pain, dysuria, hematuria, leg pain and swelling, melena, loss of motor function and sensation in the LE, incontinence, and coordination difficulties. We were asked to assess - History Source History Provided By: Patient, Medical Record Limitations to Obtaining History: No Limitations - Past Medical History Cardio/Vascular: Yes: CAD, HTN Endocrine: Yes: Diabetes Mellitus - Past Surgical History Past Surgical History: Yes: CABG - Alcohol/Substance Use Hx Alcohol Use: No - Smoking History Smoking history: Current every day smoker Have you smoked in the past 12 months: Yes Aproximately how many cigarettes per day: 6 If you are a former smoker, when did you quit?: 5 Home Medications - Allergies Allergies/Adverse Reactions: Allergies Allergy/AdvReac Type Severity Reaction Status Date / Time No Known Allergies Allergy Verified 03/05/18 08:57 - Home Medications Home Medications: Ambulatory Orders Acetaminophen [Tylenol .Regular Strength -] 650 mg PO Q6H PRN #0 tablet Atorvastatin Ca [Lipitor] 10 mg PO HS tablet 03/29/17 Enalapril Maleate 2.5 mg PO DAILY 03/29/17 Iron 325 mg PO BID 03/29/17 Metoprolol Succinate [Toprol Xl] 100 mg PO DAILY 03/29/17 Sitagliptin Phos/Metformin HCl [Janumet 50-500 mg Tablet] 1 each PO DAILY Sulfamethoxazole/Trimethoprim [Bactrim Ds -] 1 tab PO BID #14 tablet 03/05/18 Review of Systems - Review of Systems Constitutional: reports: Loss of Appetite. denies: Chills, Fever Eyes: denies: Blind Spots, Recent Change in Vision HENT: denies: Difficult Swallowing, Throat Pain Neck: denies: Decreased ROM, Tenderness Cardiovascular: denies: Chest Pain, Palpitations Respiratory: denies: Cough, SOB Gastrointestinal: denies: Abdominal Pain, Bloating, Constipation, Diarrhea, Other Genitourinary: denies: Discharge, Incontinence, Testicular Swelling Musculoskeletal: denies: Back Pain, Crepitus, Decreased ROM Integumentary: denies: Blister, Bruising, Lesions Neurological: denies: Change in LOC, Change in Speech, Seizure, Syncope Endocrine: denies: Unexplained Weight Gain, Unexplained Weight Loss Hematology/Lymphatic: denies: Easily Bruised, Excessive Bleeding Psychiatric: denies: Anxiety, Depression Physical Exam Vital Signs: Vital Signs Temperature 99.3 F 03/07/18 16:33 Pulse Rate 90 03/07/18 20:53 Respiratory Rate 18 03/07/18 20:53 Blood Pressure 103/56 03/07/18 20:53 O2 Sat by Pulse Oximetry (%) 95 03/07/18 20:53 Vital Signs Period Temp Pulse Resp BP Sys/Raygoza Pulse Ox Last 24 Hr 98 F-99.3 F 79-110 18-20 90-119/48-65 94-98 Constitutional: Yes: Well Nourished, No Distress, Calm Eyes: Yes: Conjunctiva Clear, EOM Intact HENT: Yes: Atraumatic, Normocephalic Neck: Yes: Supple, Trachea Midline Cardiovascular: Yes: Regular Rate and Rhythm, S1, S2 Respiratory: Yes: Regular, CTA Bilaterally Gastrointestinal: Yes: Normal Bowel Sounds, Soft. No: Tenderness Renal/: No: CVA Tenderness - Left, CVA Tenderness - Right Musculoskeletal: No: Back Pain, Joint Swelling, Muscle Weakness Extremities: No: Cool, Cyanosis Edema: No Peripheral Pulses WNL: Yes Integumentary: No: Erythema, Jaundice Wound/Incision: Yes: Clean/Dry, Dressing Dry and Intact, Dressing Removed, [place] Removed, Draining (fibrinous exudate, non-fourl smelling), Unapproximated (1X1cm) Neurological: Yes: Alert Psychiatric: Yes: Alert, Oriented Labs: CBC, BMP 03/07/18 16:53 03/07/18 16:53 Problem List - Problems (1) Abscess, gluteal, left Assessment/Plan: 77yo male MMP with resolving left gluteal abscess. not acutely infected, draining fibrinous exudate. No acute surgical intervention is indicated. Local wound care by RN 1/4 inch pain packing, 2X2 gauze sponge and tape diaily or prn Defer antibiotics management to ID Recall as needed Thank you for the opportunity to participate in the care of this patient. Code(s): L02.31 - CUTANEOUS ABSCESS OF BUTTOCK (2) Acute coronary syndrome Code(s): I24.9 - ACUTE ISCHEMIC HEART DISEASE, UNSPECIFIED (3) CRI (chronic renal insufficiency) Code(s): N18.9 - CHRONIC KIDNEY DISEASE, UNSPECIFIED (4) Chest pain Code(s): R07.9 - CHEST PAIN, UNSPECIFIED Qualifiers: Chest pain type: chest pain due to myocardial ischemia Ischemic chest pain type: other angina pectoris type Qualified Code(s): I20.8 - Other forms of angina pectoris (5) DMII (diabetes mellitus, type 2) Code(s): E11.9 - TYPE 2 DIABETES MELLITUS WITHOUT COMPLICATIONS Qualifiers: Diabetes mellitus complication status: with kidney complications (6) Lipidemia Code(s): E78.5 - HYPERLIPIDEMIA, UNSPECIFIED
[2018-03-07 22:30] VITALS: BMI 31.1
[2018-03-07] MEDS: ATORVASTATIN CA 10 MG TABLET (FP) PO SCH (22:58)
[2018-03-07] MEDS: HEPARIN NA (PORCINE) 5,000 UNITS/ML 1ML VIAL SQ SCH (22:58)
[2018-03-07] MEDS: FERROUS SO4 325 MG TABLET (FP) PO SCH (22:58)
[2018-03-07] MEDS: INSULIN SLIDING SCALE (NOVOLOG) 1 VIAL SQ SCH (23:21)
[2018-03-07 23:22] LABS: URINE APPEARANCE CLOUDY; URINE BILIRUBIN NEGATIVE (<2.0 mg/dL); URINE COLOR YELLOW; URINE GLUCOSE (UA) 3+ (NEGATIVE); URINE KETONE NEGATIVE (NEGATIVE); URINE NITRITE NEGATIVE (NEGATIVE); URINE UROBILINOGEN NEGATIVE mg/dL (0.2-1.0)
[2018-03-07 23:37] LABS: URINE LEUK ESTERASE 1+ (NEGATIVE); URINE PROTEIN 1+ (NEGATIVE)
[2018-03-07 23:38] LABS: EPI CELLS RARE /HPF (FEW); URINE BACTERIA MODERATE /hpf (NONE SEEN); URINE HYALINE CAST 5 /lpf; URINE MUCUS RARE
[2018-03-08] MEDS ORDERED: PT OWN MED DRAWER 7, Y5N ONE (01:13)
[2018-03-08] MEDS: AMPICILLIN NA/SULBACTAM NA 3 GM in SODIUM CHLORIDE 100 ML IVPB SCH ×4 (01:35→17:39)
[2018-03-08] MEDS: HEPARIN NA (PORCINE) 5,000 UNITS/ML 1ML VIAL SQ SCH ×3 (06:13→21:18)
[2018-03-08] MEDS: INSULIN SLIDING SCALE (NOVOLOG) 1 VIAL SQ SCH ×4 (06:13→21:24)
[2018-03-08 06:36] LABS: BASO % 0.5 % (0-2.0); EOS % 1.3 % (0-4.5); LYMPH % 10.9 % (8-40); MCH 26.3 pg (25.7-33.7); MCHC 32.1 g/dl (32.0-35.9); MEAN CELL VOLUME 81.8 fl (80-96); MONO % 5.9 % (3.8-10.2); NEUT % 81.4 % (42.8-82.8); PLATELET COUNT 307 K/MM3 (134-434); RBC 3.79 M/mm3 (4.00-5.60); WHITE BLOOD COUNT 9.6 K/mm3 (4.0-10.0)
[2018-03-08 07:16] LABS: CHLORIDE 102 mmol/L (98-107); POTASSIUM 3.7 mmol/L (3.5-5.1); SODIUM 135 mmol/L (136-145)
[2018-03-08 07:24] LABS: ALBUMIN 1.9 g/dl (3.4-5.0); ALK PHOS 60 U/L (45-117); ANION GAP 10 MMOL/L (8-16); BILIRUBIN,TOTAL 0.2 mg/dL (0.2-1); BLOOD UREA NITROGEN 30 mg/dL (7-18); CALCIUM 7.5 mg/dL (8.5-10.1); CO2 23 mmol/L (21-32); CREATININE 1.7 mg/dL (0.55-1.3); GLUCOSE,RANDOM 219 mg/dL (74-106); MAGNESIUM 2.1 mg/dL (1.8-2.4); PHOSPHOROUS 3.5 mg/dL (2.5-4.9); SGOT/AST 17 U/L (15-37); SGPT/ALT 21 U/L (13-61); TOT PROT 5.2 g/dl (6.4-8.2)
[2018-03-08] MEDS: FERROUS SO4 325 MG TABLET (FP) PO SCH ×3 (09:36→21:18)
[2018-03-08] MEDS: ENALAPRIL MALEATE 2.5 MG TABLET (FP) PO SCH ×2 (09:36→10:05)
[2018-03-08] MEDS ORDERED: INSULIN (NOVOLOG) ASPART 100 UNITS/ML 10ML VIAL ONE ×3 (10:47→21:23)
--- NOTE | 2018-03-08 11:05 | PN ---
Progress Note, Physician - Current Medication List Current Medications: Active Medications Acetaminophen (Tylenol -) 650 mg PO Q6H PRN PRN Reason: FEVER Last Admin: 03/08/18 09:35 Dose: 650 mg Atorvastatin Calcium (Lipitor -) 10 mg PO HS [facility] Last Admin: 03/07/18 22:58 Dose: 10 mg Enalapril Maleate (Vasotec -) 2.5 mg PO DAILY [facility] Last Admin: 03/08/18 10:05 Dose: 2.5 mg Ferrous Sulfate (Feosol -) 325 mg PO BID [facility] Last Admin: 03/08/18 10:05 Dose: 325 mg Heparin Sodium (Porcine) (Heparin -) 5,000 unit SQ TID [facility] Last Admin: 03/08/18 06:13 Dose: Not Given Ampicillin Sodium/Sulbactam (Sodium 3 gm/ Sodium Chloride) 100 mls @ 200 mls/ hr IVPB Q6H-IV [facility] Last Admin: 03/08/18 09:35 Dose: 200 mls/hr Sodium Chloride (Normal Saline -) 1,000 mls @ 50 mls/hr IV ASDIR [facility] Stop: 03/08/18 19:43 Last Admin: 03/07/18 23:23 Dose: 50 mls/hr Insulin Aspart (Novolog Vial Sliding Scale -) 1 vial SQ [facility]; Protocol Last Admin: 03/08/18 10:49 Dose: 6 units Insulin Detemir (Levemir Vial) 15 units SQ [facility] Metoprolol Succinate (Toprol Xl -) 100 mg PO DAILY [facility] Last Admin: 03/08/18 10:05 Dose: 100 mg - Objective Vital Signs: Vital Signs Temperature 98.8 F 03/08/18 08:51 Pulse Rate 79 03/08/18 08:51 Respiratory Rate 20 03/08/18 08:51 Blood Pressure 116/59 03/08/18 08:51 O2 Sat by Pulse Oximetry (%) 94 L 03/07/18 22:34 Constitutional: Yes: Calm Cardiovascular: Yes: Regular Rate and Rhythm, S1, S2 Respiratory: Yes: CTA Bilaterally Gastrointestinal: Yes: Normal Bowel Sounds, Soft Edema: No Wound/Incision: Yes: Dressing Removed (Fibrinous exudate non foul smelling- left gluteal area left groin erythema) Neurological: Yes: Alert, Oriented Labs: CBC, BMP 03/08/18 06:20 03/08/18 06:20 Problem List - Problems (1) Abscess, gluteal, left Assessment/Plan: seen by surgery dressing done iv abx per ID awiating cultures Code(s): L02.31 - CUTANEOUS ABSCESS OF BUTTOCK (2) DMII (diabetes mellitus, type 2) Assessment/Plan: hgba1c noted 15 bgm sliding scale levemir will uptitrate as needed patient on metformin as outpatient will hold given increase creatinine endocrine eval Code(s): E11.9 - TYPE 2 DIABETES MELLITUS WITHOUT COMPLICATIONS Qualifiers: Diabetes mellitus complication status: with kidney complications (3) CRI (chronic renal insufficiency) Assessment/Plan: acute on chronic renal sono renal consult will monitor electrolytes Code(s): N18.9 - CHRONIC KIDNEY DISEASE, UNSPECIFIED (4) Lipidemia Assessment/Plan: statin check lipid panel Code(s): E78.5 - HYPERLIPIDEMIA, UNSPECIFIED
--- NOTE | 2018-03-08 14:49 | CONSULT ---
Consult Consult Specialty:: Nephrology Reason for Consultation:: MCKENZIE - History of Present Illness Chief Complaint: left gluteal fold abscess History of Present Illness: Pt is a 77 year old male with pmhx of DM, CKD, HTN, CAD, and left gluteal fold abscess who presents with discharge from wound. He was found to have worsening of his renal function and I was called to evaluate him. He denies dysuria or hematuria. He denies chest pain or palpitations. He took one of dose of motrin. He was started on bactrim after last ER visit. He denies shortness of breath. - History Source History Provided By: Patient - Past Medical History Cardio/Vascular: Yes: CAD, HTN, Hyperlipdemia Renal/: Yes: Renal Inusuff Endocrine: Yes: Diabetes Mellitus - Past Surgical History Past Surgical History: Yes: CABG - Alcohol/Substance Use Hx Alcohol Use: No - Smoking History Smoking history: Current every day smoker Have you smoked in the past 12 months: Yes Aproximately how many cigarettes per day: 6 If you are a former smoker, when did you quit?: 5 Home Medications - Allergies Allergies/Adverse Reactions: Allergies Allergy/AdvReac Type Severity Reaction Status Date / Time No Known Allergies Allergy Verified 03/05/18 08:57 - Home Medications Home Medications: Ambulatory Orders Acetaminophen [Tylenol .Regular Strength -] 650 mg PO Q6H PRN #0 tablet Atorvastatin Ca [Lipitor] 10 mg PO HS tablet 03/29/17 Enalapril Maleate 2.5 mg PO DAILY 03/29/17 Iron 325 mg PO BID 03/29/17 Metoprolol Succinate [Toprol Xl] 100 mg PO DAILY 03/29/17 Sitagliptin Phos/Metformin HCl [Janumet 50-500 mg Tablet] 1 each PO DAILY Sulfamethoxazole/Trimethoprim [Bactrim Ds -] 1 tab PO BID #14 tablet 03/05/18 Family Disease History - Family Disease History Family History: Denies Review of Systems - Review of Systems Constitutional: reports: Chills Eyes: reports: No Symptoms HENT: reports: No Symptoms Neck: reports: No Symptoms Cardiovascular: reports: No Symptoms Respiratory: reports: No Symptoms Gastrointestinal: reports: No Symptoms Genitourinary: reports: No Symptoms Musculoskeletal: reports: No Symptoms Integumentary: reports: Other (left groin abscess) Neurological: reports: No Symptoms Endocrine: reports: No Symptoms Psychiatric: reports: No Symptoms Physical Exam Vital Signs: Vital Signs Temperature 98.2 F 03/08/18 14:39 Pulse Rate 91 H 03/08/18 14:39 Respiratory Rate 20 03/08/18 14:39 Blood Pressure 124/57 03/08/18 14:39 O2 Sat by Pulse Oximetry (%) 94 L 03/07/18 22:34 Constitutional: Yes: Calm Eyes: Yes: Conjunctiva Clear HENT: Yes: Atraumatic Cardiovascular: Yes: S1, S2 Respiratory: Yes: CTA Bilaterally Gastrointestinal: Yes: Soft Renal/: Yes: WNL Musculoskeletal: Yes: WNL Edema: No Integumentary: Yes: Other (left groin abscess) Neurological: Yes: Oriented Psychiatric: Yes: Oriented Labs: CBC, BMP 03/08/18 06:20 03/08/18 06:20 Laboratory Tests 03/29/17 03/07/18 03/08/18 11:55 16:53 06:20 Sodium 135 L Potassium 3.7 Creatinine 1.5 H 2.3 H 1.7 H Imaging - Results Chest X-ray: Report Reviewed Problem List - Problems (1) Abscess Code(s): L02.91 - CUTANEOUS ABSCESS, UNSPECIFIED (2) CRI (chronic renal insufficiency) Code(s): N18.9 - CHRONIC KIDNEY DISEASE, UNSPECIFIED (3) DMII (diabetes mellitus, type 2) Code(s): E11.9 - TYPE 2 DIABETES MELLITUS WITHOUT COMPLICATIONS Qualifiers: Diabetes mellitus complication status: with kidney complications Assessment/Plan Current Medications Generic Name Dose Route Start Last Admin Trade Name Pumaq PRN Reason Stop Dose Admin Acetaminophen 650 mg 03/07/18 19:39 03/08/18 09:35 Tylenol - PO 650 mg Q6H PRN Administration FEVER Atorvastatin Calcium 10 mg 03/07/18 22:00 03/07/18 22:58 Lipitor - PO 10 mg HS CHRIS Administration Enalapril Maleate 2.5 mg 03/08/18 10:00 03/08/18 10:05 Vasotec - PO 2.5 mg DAILY CHRIS Administration Ferrous Sulfate 325 mg 03/07/18 22:00 03/08/18 10:05 Feosol - PO 325 mg BID CHRIS Administration Heparin Sodium (Porcine) 5,000 unit 03/07/18 22:00 03/08/18 14:01 Heparin - SQ Not Given TID CHRIS Ampicillin Sodium/Sulbactam 100 mls @ 200 mls/hr 03/08/18 01:00 03/08/18 09: 35 Sodium 3 gm/ Sodium Chloride IVPB 200 mls/hr Q6H-IV CHRIS Administration Sodium Chloride 1,000 mls @ 50 mls/hr 03/07/18 19:45 03/07/18 23:23 Normal Saline - IV 03/08/18 19:43 50 mls/hr ASDIR CHRIS Administration Insulin Aspart 1 vial 03/07/18 22:00 03/08/18 10:49 Novolog Vial Sliding Scale - SQ 6 units ACHS CHRIS Administration Protocol Insulin Detemir 15 units 03/08/18 22:00 Levemir Vial SQ HS CHRIS Metoprolol Succinate 100 mg 03/08/18 10:00 03/08/18 10:05 Toprol Xl - PO 100 mg DAILY CHRIS Administration Impression 1. MCKENZIE 2. CKD 3. groin abscess 4. DM 5. HTN 6. HLD 7. CAD Plan - renal function improving with fluids - stop bactim - check ua - check ultrasound - repeat labs in am - dm is not controlled - will increase rate of fluids Dr Jennings
[2018-03-08] MEDS ORDERED: SODIUM CHLORIDE 1,000 ML IV SCH (14:50)
--- NOTE | 2018-03-08 15:08 | PN ---
Progress Note (short form) - Note Progress Note: ID consult dictated 77 yo man poorly controlled DM , seen in ED on 03/05 with buttock pain found to have abscess that was drained no fevers, otherwise well, discharged on Bactrim returned yesterday for wound check with continued drainage and was admitted currently on unasyn patient examined incision is clean with minimal drainage, no erythema hgbaic is 15 continue unasyn adjusted for CKD can switch to augmentin in am Problem List - Problems (1) Abscess, gluteal, left Code(s): L02.31 - CUTANEOUS ABSCESS OF BUTTOCK (2) Poorly controlled diabetes mellitus Code(s): E11.65 - TYPE 2 DIABETES MELLITUS WITH HYPERGLYCEMIA (3) CRI (chronic renal insufficiency) Code(s): N18.9 - CHRONIC KIDNEY DISEASE, UNSPECIFIED
[2018-03-08] MEDS ORDERED: MELATONIN 1 MG TABLET PO PRN (15:46)
--- NOTE | 2018-03-08 16:44 | EKG ---
Test Reason : Blood Pressure : / mmHG Vent. Rate : 094 BPM Atrial Rate : 214 BPM P-R Int : 000 ms QRS Dur : 080 ms QT Int : 448 ms P-R-T Axes : 000 006 000 degrees QTc Int : 560 ms ATRIAL FLUTTER WITH VARIABLE A-V BLOCK CANNOT RULE OUT ANTEROSEPTAL INFARCT (CITED ON OR BEFORE 29-MAR-2017) PROLONGED QT ABNORMAL ECG WHEN COMPARED WITH ECG OF 29-MAR-2017 11:17, SIGNIFICANT CHANGES HAVE OCCURRED Confirmed by Tj Archuleta ([id number]) on 03/08/2018 4:43:31 PM Referred By: Confirmed By:Tj Archuleta
[2018-03-08] MEDS ORDERED: Insulin (LOG) Aspart 100 UNITS/ML VIAL SQ ONE (17:29)
--- NOTE | 2018-03-08 20:44 | CONS ---
DATE OF CONSULTATION: DATE OF DICTATION: 03/08/2018 REQUESTED BY: Howard Robertson MD This is a 77-year-old man with poorly-controlled diabetes. Hemoglobin A1c is 15. He was seen in the ER on March 05 with buttock pain and was found to have an abscess that was drained. He had no fevers. He was otherwise well. He was discharged on Bactrim. He returned yesterday for a wound check, with continued drainage, and was admitted. He is currently on Unasyn. The patient has no complaints. He is otherwise feeling well. His past medical history is notable for hypertension, coronary artery disease, [id number] diabetes, chronic kidney disease. Surgical history is notable for CABG in 2006. He has 2 stents. There is no history of any hip replacement, knee replacement, valve replacement, or a pacemaker. SOCIAL HISTORY: He is an active smoker. He likes his sweets. Occasional beer. No other substance use. He lives with his family. He has no known drug allergies. Medications at home include the Bactrim, which he had started taking on Wednesday, [place], metoprolol, iron, enalapril, atorvastatin, and acetaminophen. REVIEW OF SYSTEMS: He feels well, he has no complaints. He has no abdominal pain, chest pain. No fevers or chills. PHYSICAL EXAMINATION: Vital Signs: Temperature is 98.2. Pulse 91. Blood pressure 124/57. Respiratory rate is 20. He is saturating 94%. HEENT: Normocephalic. His eyes are anicteric. Neck: Supple. Lungs: Clear to auscultation. Heart: Regular rate and rhythm. Abdomen: Soft, nontender. Extremities: Without edema. Skin: On his buttock, he has a small incision area that is clean. There is minimal serous drainage. There is no purulence. There is no associated erythema. Labs are notable for a white count of 7.3, hemoglobin 12.6, platelets are 262. His hemoglobin A1c is 15, lactic acid is 0.9. His BUN and creatinine are 30 and 1.7. His glucose is 299. The white count is 9.6, hemoglobin of 10, platelets are 307. Cultures done when he originally presented to the ER grew E coli and a group B strep. In summary, this is a 77-year-old man with poorly-controlled diabetes, with a buttock abscess that has been drained. I would suggest we continue Unasyn for now, can switch to Augmentin in the morning. Would treat him for 5 days, with local wound care. Please call back if needed. NBA KAY M.D. NATHANIEL/[id number]
[2018-03-08] MEDS: ATORVASTATIN CA 10 MG TABLET (FP) PO SCH (21:18)
[2018-03-08] MEDS ORDERED: INSULIN (LEVEMIR) 100 UNITS/ML UNITS SQ SCH (22:00)
[2018-03-09] MEDS: AMPICILLIN NA/SULBACTAM NA 3 GM in SODIUM CHLORIDE 100 ML IVPB SCH ×2 (01:25→10:36)
[2018-03-09] MEDS: HEPARIN NA (PORCINE) 5,000 UNITS/ML 1ML VIAL SQ SCH ×2 (06:11→14:45)
[2018-03-09] MEDS: INSULIN SLIDING SCALE (NOVOLOG) 1 VIAL SQ SCH ×2 (06:12→12:52)
[2018-03-09 07:44] LABS: BASO % 0.8 % (0-2.0); EOS % 1.9 % (0-4.5); HEMATOCRIT 30.5 % (35.4-49); HEMOGLOBIN 9.8 GM/dL (11.7-16.9); LYMPH % 12.4 % (8-40); MCH 26.1 pg (25.7-33.7); MEAN CELL VOLUME 81.7 fl (80-96); MEAN PLT VOLUME 8.8 fl (7.5-11.1); MONO % 7.1 % (3.8-10.2); NEUT % 77.8 % (42.8-82.8); PLATELET COUNT 292 K/MM3 (134-434); RBC 3.74 M/mm3 (4.00-5.60); WHITE BLOOD COUNT 8.6 K/mm3 (4.0-10.0)
[2018-03-09 08:22] LABS: ALBUMIN 1.9 g/dl (3.4-5.0); ANION GAP 7 MMOL/L (8-16); BILIRUBIN,TOTAL 0.3 mg/dL (0.2-1); BLOOD UREA NITROGEN 19 mg/dL (7-18); CALCIUM 7.6 mg/dL (8.5-10.1); CHLORIDE 107 mmol/L (98-107); CHOLESTEROL 120 mg/dL (50-200); CO2 26 mmol/L (21-32); CREATININE 1.2 mg/dL (0.55-1.3); GLUCOSE,RANDOM 97 mg/dL (74-106); POTASSIUM 3.9 mmol/L (3.5-5.1); SGOT/AST 17 U/L (15-37); SGPT/ALT 22 U/L (13-61); SODIUM 140 mmol/L (136-145); TOT PROT 5.4 g/dl (6.4-8.2); TRIGLYCERIDES 172 mg/dL (0-150)
[2018-03-09 08:23] LABS: ALK PHOS 58 U/L (45-117); HDL CHOLESTEROL 22 mg/dL (40-60)
--- NOTE | 2018-03-09 10:00 | PN ---
Progress Note, Physician - Current Medication List Current Medications: Active Medications Acetaminophen (Tylenol -) 650 mg PO Q6H PRN PRN Reason: FEVER Last Admin: 03/08/18 09:35 Dose: 650 mg Atorvastatin Calcium (Lipitor -) 10 mg PO HS [facility] Last Admin: 03/08/18 21:18 Dose: 10 mg Ferrous Sulfate (Feosol -) 325 mg PO BID [facility] Last Admin: 03/08/18 21:18 Dose: 325 mg Heparin Sodium (Porcine) (Heparin -) 5,000 unit SQ TID [facility] Last Admin: 03/09/18 06:11 Dose: 5,000 unit Ampicillin Sodium/Sulbactam (Sodium 3 gm/ Sodium Chloride) 100 mls @ 200 mls/ hr IVPB Q8H-IV [facility] Last Admin: 03/09/18 01:25 Dose: 200 mls/hr Insulin Aspart (Novolog Vial Sliding Scale -) 1 vial SQ ACHS [facility]; Protocol Last Admin: 03/09/18 06:12 Dose: Not Given Insulin Detemir (Levemir Vial) 15 units SQ HS [facility] Last Admin: 03/08/18 21:20 Dose: 15 units Melatonin (Melatonin) 3 mg PO HS PRN PRN Reason: INSOMNIA Last Admin: 03/08/18 23:16 Dose: 3 mg Metoprolol Succinate (Toprol Xl -) 100 mg PO DAILY [facility] Last Admin: 03/08/18 10:05 Dose: 100 mg - Objective Vital Signs: Vital Signs Temperature 98.4 F 03/09/18 05:55 Pulse Rate 77 03/09/18 05:55 Respiratory Rate 20 03/09/18 05:55 Blood Pressure 140/60 03/09/18 05:55 O2 Sat by Pulse Oximetry (%) 96 03/08/18 21:00 Cardiovascular: Yes: S1, S2 Respiratory: Yes: Regular, CTA Bilaterally Gastrointestinal: Yes: Normal Bowel Sounds, Soft ...Rectal Exam: Yes: Inflammation ( and induration--gluteal area) Labs: CBC, BMP 03/09/18 06:30 03/09/18 06:30 Problem List - Problems (1) Abscess, gluteal, left Assessment/Plan: seen by surgery dressing done iv abx per ID awaiting cultures Code(s): L02.31 - CUTANEOUS ABSCESS OF BUTTOCK (2) Anemia Assessment/Plan: -W/U ordered -GI consult -Hgb 10 Code(s): D64.9 - ANEMIA, UNSPECIFIED (3) Poorly controlled diabetes mellitus Assessment/Plan: hgba1c noted 15 bgm sliding scale levemir will up titrate as needed patient on metformin as outpatient will hold given increase creatinine endocrine eval Code(s): E11.65 - TYPE 2 DIABETES MELLITUS WITH HYPERGLYCEMIA (4) CRI (chronic renal insufficiency) Assessment/Plan: Improved acute on chronic renal sono renal consult will monitor electrolytes Code(s): N18.9 - CHRONIC KIDNEY DISEASE, UNSPECIFIED
[2018-03-09] MEDS ORDERED: PT OWN MED DRAWER 7, Y5N ONE (10:27)
[2018-03-09] MEDS: FERROUS SO4 325 MG TABLET (FP) PO SCH (10:39)
[2018-03-09 10:42] VITALS: BP 139/63; PULSE 99; TEMP 98.6
[2018-03-09] MEDS ORDERED: TAMSULOSIN HCL 0.4 MG CAP.ER.24H (FP) PO SCH (11:28)
--- NOTE | 2018-03-09 11:28 | PN ---
Progress Note, Physician History of Present Illness: Pt seen and examined at bedside. He is awake and alert. He denies dysuria or hematuria. - Current Medication List Current Medications: Active Medications Acetaminophen (Tylenol -) 650 mg PO Q6H PRN PRN Reason: FEVER Last Admin: 03/08/18 09:35 Dose: 650 mg Atorvastatin Calcium (Lipitor -) 10 mg PO HS [facility] Last Admin: 03/08/18 21:18 Dose: 10 mg Ferrous Sulfate (Feosol -) 325 mg PO BID [facility] Last Admin: 03/09/18 10:39 Dose: 325 mg Heparin Sodium (Porcine) (Heparin -) 5,000 unit SQ TID [facility] Last Admin: 03/09/18 06:11 Dose: 5,000 unit Ampicillin Sodium/Sulbactam (Sodium 3 gm/ Sodium Chloride) 100 mls @ 200 mls/ hr IVPB Q8H-IV [facility] Last Admin: 03/09/18 10:36 Dose: 200 mls/hr Insulin Aspart (Novolog Vial Sliding Scale -) 1 vial SQ [facility]; Protocol Last Admin: 03/09/18 06:12 Dose: Not Given Insulin Detemir (Levemir Vial) 15 units SQ [facility] Last Admin: 03/08/18 21:20 Dose: 15 units Melatonin (Melatonin) 3 mg PO HS PRN PRN Reason: INSOMNIA Last Admin: 03/08/18 23:16 Dose: 3 mg Metoprolol Succinate (Toprol Xl -) 100 mg PO DAILY [facility] Last Admin: 03/09/18 10:38 Dose: 100 mg - Objective Vital Signs: Vital Signs Temperature 98.6 F 03/09/18 09:00 Pulse Rate 99 H 03/09/18 09:00 Respiratory Rate 20 03/09/18 09:00 Blood Pressure 139/63 03/09/18 09:00 O2 Sat by Pulse Oximetry (%) 96 03/08/18 21:00 Constitutional: Yes: Calm Eyes: Yes: Conjunctiva Clear HENT: Yes: Atraumatic Cardiovascular: Yes: S1, S2 Respiratory: Yes: CTA Bilaterally Gastrointestinal: Yes: Soft Genitourinary: Yes: WNL, Other (groin abscess) Musculoskeletal: Yes: WNL Edema: No Integumentary: Yes: Other (groin abscess) Neurological: Yes: Oriented Psychiatric: Yes: Oriented Labs: CBC, BMP 03/09/18 06:30 09/19/18 06:30 Problem List - Problems (1) Abscess Code(s): L02.91 - CUTANEOUS ABSCESS, UNSPECIFIED (2) CRI (chronic renal insufficiency) Code(s): N18.9 - CHRONIC KIDNEY DISEASE, UNSPECIFIED (3) DMII (diabetes mellitus, type 2) Code(s): E11.9 - TYPE 2 DIABETES MELLITUS WITHOUT COMPLICATIONS Qualifiers: Diabetes mellitus complication status: with kidney complications Assessment/Plan Current Medications Generic Name Dose Route Start Last Admin Trade Name Freq PRN Reason Stop Dose Admin Acetaminophen 650 mg 03/07/18 19:39 03/08/18 09:35 Tylenol - PO 650 mg Q6H PRN Administration FEVER Atorvastatin Calcium 10 mg 03/07/18 22:00 03/08/18 21:18 Lipitor - PO 10 mg HS CHRIS Administration Ferrous Sulfate 325 mg 03/07/18 22:00 03/09/18 10:39 Feosol - PO 325 mg BID CHRIS Administration Heparin Sodium (Porcine) 5,000 unit 03/07/18 22:00 03/09/18 06:11 Heparin - SQ 5,000 unit TID CHRIS Administration Ampicillin Sodium/Sulbactam 100 mls @ 200 mls/hr 03/08/18 18:00 03/09/18 10: 36 Sodium 3 gm/ Sodium Chloride IVPB 200 mls/hr Q8H-IV CH[facility]IS Administration Insulin Aspart 1 vial 03/07/18 22:00 03/09/18 06:12 Novolog Vial Sliding Scale - SQ Not Given ACHS [facility] Protocol Insulin Detemir 15 units 03/08/18 22:00 03/08/18 21:20 Levemir Vial SQ 15 units HS CHRIS Administration Melatonin 3 mg 03/08/18 15:46 03/08/18 23:16 Melatonin PO 3 mg HS PRN Administration INSOMNIA Metoprolol Succinate 100 mg 03/08/18 10:00 03/09/18 10:38 Toprol Xl - PO 100 mg DAILY CHRIS Administration Impression 1. MCKENZIE 2. CKD 3. groin abscess 4. DM 5. HTN 6. HLD 7. CAD Plan - renal function is improved - abx per ID - agree with stopping fluids - renal ultrasound reviewed - urology eval for enlarged prostate - can start flomax for elevated pvr Dr Jennings
[2018-03-09] MEDS ORDERED: INSULIN (NOVOLOG) ASPART 100 UNITS/ML 10ML VIAL ONE (12:50)
--- NOTE | 2018-03-09 13:30 | CONSULT ---
Consult Consult Specialty:: endocrine Referred by:: dr.ammir rainey Reason for Consultation:: diabetes mellitus - History of Present Illness Chief Complaint: high sugar History of Present Illness: Mr. Carson is a 77 year-old male with a PMH significant for HTN, CAD s/p CABG 2007 s/p stents x 2, NIDDM, and chronic kidney disease. On 03/05 had an I&D of a left gluteal fold abscess and sent home with a prescription for Bactrim. found with purulent draining abscess and elevated blood sugars.he admitts non complaint with diet and medication,has frequent elevated blood sugars,denies chest pain,dyspnea, nausea or vomiting. - History Source History Provided By: Patient - Past Medical History Cardio/Vascular: Yes: CAD, HTN, Hyperlipdemia Renal/: Yes: Renal Inusuff Endocrine: Yes: Diabetes Mellitus - Past Surgical History Past Surgical History: Yes: CABG - Alcohol/Substance Use Hx Alcohol Use: No - Smoking History Smoking history: Current every day smoker Have you smoked in the past 12 months: Yes Aproximately how many cigarettes per day: 6 If you are a former smoker, when did you quit?: 5 Home Medications - Allergies Allergies/Adverse Reactions: Allergies Allergy/AdvReac Type Severity Reaction Status Date / Time No Known Allergies Allergy Verified 03/05/18 08:57 - Home Medications Home Medications: Ambulatory Orders Acetaminophen [Tylenol .Regular Strength -] 650 mg PO Q6H PRN #0 tablet Atorvastatin Ca [Lipitor] 10 mg PO HS tablet 03/29/17 Enalapril Maleate 2.5 mg PO DAILY 03/29/17 Iron 325 mg PO BID 03/29/17 Metoprolol Succinate [Toprol Xl] 100 mg PO DAILY 03/29/17 Sitagliptin Phos/Metformin HCl [Janumet 50-500 mg Tablet] 1 each PO DAILY Sulfamethoxazole/Trimethoprim [Bactrim Ds -] 1 tab PO BID #14 tablet 03/05/18 Review of Systems - Review of Systems Constitutional: reports: Unintentional Wgt. Loss, Weakness Eyes: reports: Blurred Vision HENT: reports: No Symptoms Neck: reports: No Symptoms Cardiovascular: reports: No Symptoms Respiratory: reports: No Symptoms Gastrointestinal: reports: Constipation Genitourinary: reports: Frequency Breasts: reports: No Symptoms Reported Musculoskeletal: reports: Muscle Cramps, Muscle Weakness Neurological: reports: Weakness Endocrine: reports: Unexplained Weight Loss Physical Exam Vital Signs: Vital Signs Temperature 98.6 F 03/09/18 09:00 Pulse Rate 99 H 03/09/18 09:00 Respiratory Rate 20 03/09/18 09:00 Blood Pressure 139/63 03/09/18 09:00 O2 Sat by Pulse Oximetry (%) 96 03/09/18 09:00 Constitutional: Yes: Calm Eyes: Yes: EOM Intact HENT: Yes: Normocephalic Neck: Yes: Trachea Midline Cardiovascular: Yes: Regular Rate and Rhythm Respiratory: Yes: CTA Bilaterally Gastrointestinal: Yes: Normal Bowel Sounds ...Rectal Exam: Yes: Deferred Renal/: Yes: WNL Breast(s): Yes: WNL Musculoskeletal: Yes: Joint Swelling, Muscle Pain, Muscle Weakness Extremities: Yes: Delayed Capillary Refill Edema: No Wound/Incision: Yes: Dressing Dry and Intact Labs: CBC, BMP 03/09/18 06:30 03/09/18 06:30 Problem List - Problems (1) Abscess Code(s): L02.91 - CUTANEOUS ABSCESS, UNSPECIFIED (2) Abscess, gluteal, left Code(s): L02.31 - CUTANEOUS ABSCESS OF BUTTOCK (3) Anemia Code(s): D64.9 - ANEMIA, UNSPECIFIED (4) Poorly controlled diabetes mellitus Code(s): E11.65 - TYPE 2 DIABETES MELLITUS WITH HYPERGLYCEMIA (5) CRI (chronic renal insufficiency) Code(s): N18.9 - CHRONIC KIDNEY DISEASE, UNSPECIFIED (6) DMII (diabetes mellitus, type 2) Code(s): E11.9 - TYPE 2 DIABETES MELLITUS WITHOUT COMPLICATIONS Qualifiers: Diabetes mellitus complication status: with kidney complications Assessment/Plan Current Active Problems Abscess (Acute) Abscess, gluteal, left (Acute) Anemia (Acute) Poorly controlled diabetes mellitus (Acute) Abnormal Lab Results 03/09/18 03/09/18 06:30 06:30 RBC 3.74 L Hgb 9.8 L Hct 30.5 L Anion Gap 7 L BUN 19 H Calcium 7.6 L Total Protein 5.4 L Albumin 1.9 L Triglycerides 172 H HDL Cholesterol 22 L Laboratory Results - last 24 hr 03/08/18 03/08/18 03/09/18 17:23 21:17 05:39 WBC RBC Hgb Hct MCV MCH MCHC RDW Plt Count MPV Absolute Neuts (auto) Neutrophils % Lymphocytes % Monocytes % Eosinophils % Basophils % Nucleated RBC % Sodium Potassium Chloride Carbon Dioxide Anion Gap BUN Creatinine Creat Clearance w eGFR POC Glucometer 477 257 97 Random Glucose Calcium Total Bilirubin AST ALT Alkaline Phosphatase Total Protein Albumin Triglycerides Cholesterol Total LDL Cholesterol HDL Cholesterol 03/09/18 03/09/18 03/09/18 06:30 06:30 12:48 WBC 8.6 RBC 3.74 L Hgb 9.8 L Hct 30.5 L MCV 81.7 MCH 26.1 MCHC 32.0 RDW 14.0 Plt Count 292 MPV 8.8 Absolute Neuts (auto) 6.7 Neutrophils % 77.8 Lymphocytes % 12.4 Monocytes % 7.1 Eosinophils % 1.9 Basophils % 0.8 Nucleated RBC % 0 Sodium 140 Potassium 3.9 Chloride 107 Carbon Dioxide 26 Anion Gap 7 L BUN 19 H Creatinine 1.2 Creat Clearance w eGFR 58.86 POC Glucometer 316 Random Glucose 97 Calcium 7.6 L Total Bilirubin 0.3 AST 17 ALT 22 Alkaline Phosphatase 58 Total Protein 5.4 L Albumin 1.9 L Triglycerides 172 H Cholesterol 120 Total LDL Cholesterol 82 HDL Cholesterol 22 L Laboratory Tests 03/08/18 06:20 Hemoglobin A1c % 15.0 H plan; bgm qid novolog insulin doses levemir 30 units am wound care and close diabetic follow up as op nutrition consult diet adherence
[2018-03-09] MEDS ORDERED: INSULIN SLIDING SCALE (NOVOLOG) 1 VIAL SQ SCH (13:35)
[2018-03-10] MEDS ORDERED: INSULIN (LEVEMIR) 100 UNITS/ML UNITS SQ SCH ×2 (07:00)
[2018-03-11 08:07] LABS: SERUM IRON SATURATION 13 % (15-55); TOTAL IRON BINDING CAPACITY 173 ug/dL (250-450); UIBC 150 ug/dL (111-343)
--- NOTE | 2018-03-11 12:11 | EKG ---
Test Reason : Blood Pressure : / mmHG Vent. Rate : 091 BPM Atrial Rate : 091 BPM P-R Int : 000 ms QRS Dur : 078 ms QT Int : 400 ms P-R-T Axes : 017 -10 -24 degrees QTc Int : 492 ms NORMAL SINUS RHYTHM INFERIOR INFARCT , AGE UNDETERMINED ABNORMAL ECG WHEN COMPARED WITH ECG OF 07-MAR-2018 19:17, SINUS RHYTHM HAS REPLACED ATRIAL FLUTTER MINIMAL CRITERIA FOR ANTEROSEPTAL INFARCT ARE NO LONGER PRESENT NON-SPECIFIC CHANGE IN ST SEGMENT IN INFERIOR LEADS NONSPECIFIC T WAVE ABNORMALITY, WORSE IN ANTERIOR LEADS QT HAS SHORTENED Confirmed by NIKKI TIRADO, KARELY ([id number]) on 03/11/2018 12:10:29 PM Referred By: Confirmed By:KARELY JORDAN MD
== END 2018-03-09 14:54 | disposition left against medical advice (07) | DRG 603 ==
LOC: JER 15:42 → JERBED 17:40 → OBSVTOIN 19:42 → J6S 21:05
PROVIDERS: ADMIT Family Medicine; ATTEND Family Medicine
DX: L02.31 Cutaneous abscess of buttock (principal); N17.9 Acute kidney failure, unspecified; I24.9 Acute ischemic heart disease, unspecified; D64.9 Anemia, unspecified; E11.65 Type 2 diabetes mellitus with hyperglycemia; I25.10 Atherosclerotic heart disease of native coronary artery without angina pectoris; I25.2 Old myocardial infarction; I12.9 Hypertensive chronic kidney disease with stage 1 through stage 4 chronic kidney disease, or unspecified chronic kidney disease; E11.22 Type 2 diabetes mellitus with diabetic chronic kidney disease; N18.9 Chronic kidney disease, unspecified; F17.210 Nicotine dependence, cigarettes, uncomplicated; E78.5 Hyperlipidemia, unspecified; Z95.1 Presence of aortocoronary bypass graft; Z95.5 Presence of coronary angioplasty implant and graft
CPT/HCPCS: 36415; 71045-TC-FY; 76775-TC; 76856-TC; 80048; 80053; 80061; 81003; 81015; 82607; 82728; 82947; 82962; 83036; 83540; 83550; 83721; 83735; 84100; 85025; 87040; 87086; 93005; 93010; 99284-25; G0378; J1644; J7030

== ENCOUNTER 2018-05-06 07:37 | Emergency (ER) | payer MEDICARE ==
[2018-05-06] MEDS ORDERED: ASPIRIN 81 MG CHEWABLE TABLETS PO ONE (08:00)
[2018-05-06] MEDS ORDERED: NITROGLYCERIN SUBLINGUAL 1/150 0.4 MG TAB ONE (08:12)
--- NOTE | 2018-05-06 08:15 | PDOC ---
Attending Attestation - Resident Resident Name: Juju Alvarez - ED Attending Attestation I have performed the following: I have examined & evaluated the patient, The case was reviewed & discussed with the resident, I agree w/resident's findings & plan, Exceptions are as noted - HPI HPI: 05/06/18 08:18 77y M hx of CAD (sp CABG, 2 stents), CKD, DM, htn, hl, presents with chest pain since this morning. The patient had an episode of pressure like cp startin ga t 6pm last night associated iwht diaphoresis, sob lasting approx 1 hr, and anothe repisode starting approx 6am for several hours. The CP has improved since this morning, but is still slightly present. pt denies any n/v, numbness/ tingling/weakness, abd pain, back pain. No cocaine use +active smoker on exam pt in n odistress card: rrr, no mrg pulm: cta b/l general: no distress abd: soft onntender the pts EKG noted for STD in the anterior leads (V2,V3) Posterior leads noted for subtle DESTIN (sub MM to 1mm) in V7,8,9 Initiated STEMI protocol at 8:25 discussedw [facility] Ed Brody (Interventional Cath PA) - accpeted for transfer to Dr. Blankenship's service Will transfer for mangement of STEMI pt given ASA 162 by EMS, 162 by us here heparin bolus 4000iu IV 05/06/18 08:51 pt now again complaints of 10/10 cp - will give NTG awaiting EMS 05/06/18 08:56 - Physicial Exam PE: 05/06/18 09:26 see above - Critical Care Time Total Critical Care Time: 50 Critical Care Statement: The care of this patient involved high complexity decision making to prevent further life threatening deterioration of the patient 's condition and/or to evaluate & treat vital organ system(s) failure or risk of failure. - Medical Decision Making 05/06/18 09:26 see above Heart Score/ECG Review - ECG Impressions Comment:: 05/06/18 08:43 Twelve-lead EKG was performed and reviewed by me. There is normal sinus rhythm with a normal rate. Rate of 93 STD in V2, V3 Posterior EKG V7,v8,9
[2018-05-06] MEDS ORDERED: ASPIRIN 81 MG CHEWABLE TABLETS ONE (08:18)
--- NOTE | 2018-05-06 08:18 | PDOC ---
History of Present Illness - General Chief Complaint: Chest Pain Stated Complaint: CHEST PAIN Time Seen by Provider: 05/06/18 08:11 - History of Present Illness Initial Comments: Oracio Carson is a 77yo man with a PMH of HTN, CAD s/p ID x2, s/p CABG (2006) s/ p stents, CAD, IDDM, current smoker who presents with twisting left-sided chest pain, diaphoresis, and SOB that started at 6am today. He has had similar symptoms on and off for the past several days, but this morning it was severe. The pain has improved somewhat by the time he arrived in the ED, but he has continued left chest pressure. He was given 2x chewable ASA and 2x sublingual nitro with some improvement in symptoms. He denies current nausea, vomiting, or diaphoresis. He does report some left arm numbness and intermittent chest pain. Past History - Past Medical History Allergies/Adverse Reactions: Allergies Allergy/AdvReac Type Severity Reaction Status Date / Time No Known Allergies Allergy Verified 03/05/18 08:57 Home Medications: Ambulatory Orders Acetaminophen [Tylenol .Regular Strength -] 650 mg PO Q6H PRN #0 tablet Atorvastatin Ca [Lipitor] 10 mg PO HS tablet 03/29/17 Enalapril Maleate 2.5 mg PO DAILY 03/29/17 Iron 325 mg PO BID 03/29/17 Metoprolol Succinate [Toprol Xl] 100 mg PO DAILY 03/29/17 Sitagliptin Phos/Metformin HCl [Janumet 50-500 mg Tablet] 1 each PO DAILY Cardiac Disorders: Yes (cad) COPD: No DVT: No Diabetes: Yes (niddm) HTN: Yes - Surgical History Cardiac Surgery: Yes (cabg, stents x2) - Suicide/Smoking/Psychosocial Hx Smoking History: Current every day smoker Have you smoked in the past 12 months: Yes Number of Cigarettes Smoked Daily: 6 If you are a former smoker, when did you quit?: 5 'Breaking Loose' booklet given: 03/29/17 Hx Alcohol Use: No Drug/Substance Use Hx: No Cardiac Specific PMH - Complaint Specific PMHX Angina: Yes Cardiac Stent: Yes Myocardial Infarction: Yes Review of Systems - Review of Systems Comments:: General: No fevers, no chills, no weight or appetite change, no malaise HEENT: No changes in vision, no changes in hearing, no congestion, no sore throat CV: See HPI, diaphoresis Pulm: No cough, no wheezing. +SOB, +current smoking GI: No nausea or vomiting, no change in bowel habits, no melena : No frequency, no urgency, no dysuria Musc: No back pain, no joint swelling, no recent injury Skin: No rash, no lesions, no erythema Endo: No excessive thirst, no heat/cold intolerance Heme: No unusual bruising or bleeding, no swollen glands Neuro: No syncope, no numbness/tingling, no focal weakness Vasc: No claudication Psych: No recent change in mood, no SI or HI *Physical Exam - Vital Signs Last Vital Signs Temp Pulse Resp BP Pulse Ox 97.5 F L 92 H 26 H 146/94 95 05/06/18 08:11 05/06/18 08:20 05/06/18 08:20 05/06/18 08:20 05/06/18 08:20 - Physical Exam Comments: General: Uncomfortable HEENT: PERRL, EOMI, MMM, voice normal, normal neck ROM, no LAD Cards: RRR, no murmur appreciated Pulm: Comfortable on room air. Coarse breath sounds b/l Abd: Soft, nontender, nondistended Ext: Atraumatic. No LE edema. ROM intact. Strength 5/5 and equal bilaterally Vasc: Extremities WWP. Skin: Normal color, no rashes or lesions Neuro: A&Ox3, CN grossly intact, normal speech, motor/sensory grossly intact and symmetric Psych: Mood appropriate to situation Heart Score/ECG Review - History History: Highly suspicious - Age Age: >/= 65 - Risk Factors Risk Factors Heart Score: Yes Hx Hypercholesterolemia, Yes Hx Hypertension, Yes Hx Diabetes, Yes Smoking History, Yes Positive family hx of cardiac disease Based on the list above the patient has:: >/=3 risk factors or Hx atherosclerotic disease - ECG Intrepretation Rhythm: Regular Rhythm - Temple Temple: Normal - P and NE Prominent R with upright T in V1 (true posterior ID): No - ST and T ST Depression Suggest: Ischemia - ECG Impressions Normal ECG: No Eligibility Checklist For AMI - INCLUSION CRITERIA Prolonged (>30 minutes)ischemic pain: Yes - EXCLUSION CRITERIA Active internal bleeding or hx of hemorrhagic diathesis: No Known bleeding diathesis: No Major surgery or serious trauma within the previous 6 weeks: No History of cerebrovascular accident(CVA): No History of central nervous system structural abnormality: No History of malignant hypertension or uncontrolled HTN: No Hemostatic defects secondary to severe hepatic/renal disease: No Diabetic hemorrhagic retinopathy: No or recent delivery(within 6 weeks): No Patients currently receiving oral anticoagulants(INR>2): No ED Treatment Course - LABORATORY CBC & Chemistry Diagram: 05/06/18 08:00 05/06/18 08:00 - ADDITIONAL ORDERS Additional order review: Laboratory Results 05/06/18 05/06/18 08:00 08:00 PT with INR 11.60 INR 0.98 Sodium 133 L Potassium 4.6 Chloride 100 Carbon Dioxide 23 Anion Gap 10 BUN 34 H Creatinine 1.7 H Creat Clearance w eGFR 39.38 Random Glucose 466 H* Calcium 8.6 Magnesium 2.2 Total Bilirubin 0.5 AST 25 ALT 17 Alkaline Phosphatase 107 Creatine Kinase 247 Creatine Kinase Index 3.6 CK-MB (CK-2) 8.9 H Troponin I 1.26 H* Total Protein 7.4 Albumin 3.5 05/06/18 08:00 RBC 5.19 MCV 83.9 MCHC 32.2 RDW 15.5 D MPV 9.8 D Neutrophils % 78.0 Lymphocytes % 13.9 Monocytes % 6.6 Eosinophils % 0.8 Basophils % 0.7 - RADIOLOGY Radiology Studies Ordered: Category Date Time Status CHEST X-RAY PORTABLE* [RAD] Stat Radiology 05/06/18 08:39 Completed - Medications Given in the ED: ED Medications Discontinued Medications Generic Name Dose Route Start Last Admin Trade Name Pumaq PRN Reason Stop Dose Admin Aspirin 162 mg 05/06/18 08:00 05/06/18 08:27 Asa - PO 05/06/18 08:01 162 mg ONCE ONE Administration Heparin Sodium (Porcine) 4,000 unit 05/06/18 08:30 05/06/18 08:50 Heparin - IVPUSH 4,000 unit PRN PRN Administration Heparin Morphine Sulfate 4 mg 05/06/18 09:00 05/06/18 09:00 Morphine Injection - IVPUSH 05/06/18 09:01 4 mg NOW ONE Administration Nitroglycerin 0.4 mg 05/06/18 08:28 05/06/18 08:30 Nitrostat - SL 05/06/18 08:29 0.4 mg ONCE ONE Administration Nitroglycerin 0.4 mg 05/06/18 08:45 05/06/18 08:45 Nitrostat - SL 05/06/18 08:46 0.4 mg ONCE ONE Administration Ondansetron HCl 4 mg 05/06/18 08:58 05/06/18 09:02 Zofran Injection IVPB 05/06/18 08:59 4 mg ONCE ONE Administration Medical Decision Making - Medical Decision Making 05/06/18 08:32 Oracio Carson is a 77yo man with a significant cardiac history including previous ID x2, CABG (2006), stents x2, IDDM, HTN, HLD, CKD and current smoking who presents with left-sided tight chest pain, diaphoresis, and SOB since 6am today. - Strongly suspect acute ID, - EKG with ST depressions in V1-V4 - Posterior and right-sided EKGs obtained. Suggest posterior ID. 0.5-1mm elevations in V4, V5 on posterior leads - CBC, CMP, coags, trop, CXR ordered 05/06/18 08:47 - STEMI protocol started, contacted interventional cardiology at [facility] - Gave sublingual nitro for continued pain. - Pain increased to 10/10. Nitro given again - Transfer to [facility] started - Dr Encarnacion spoke to Dr Blankenship 05/06/18 08:55 - Transfer to [facility] underway. Accepted by Dr Blankenship, will go directly to collaborative physician - Trop 1.26. Called to inform [facility] - CXR reviewed, no pulmonary edema, cardiomegaly or aortic abnormalities. - 4mg morphine for continued 10/10 chest pain. - Zofran for nausea Transfer to [facility] collaborative physician. Seen with Dr Encarnacion. Juju Alvarez PGY1 *DC/Admit/Observation/Transfer Diagnosis at time of Disposition: STEMI (ST elevation myocardial infarction) - Discharge Dispostion Disposition: TRANSFER ACUTE CARE/OTHER HOSP - Referrals - Patient Instructions - Post Discharge Activity - Transfer to Acute Care Facility Receiving Facility: [facility] Accepting Physician:: Pattie Transfer comment: 05/06/18 08:46 STEMI - to collaborative physician v ED
[2018-05-06 08:22] LABS: BASO % 0.7 % (0-2.0); EOS % 0.8 % (0-4.5); HEMATOCRIT 43.5 % (35.4-49); LYMPH % 13.9 % (8-40); MCHC 32.2 g/dl (32.0-35.9); MEAN CELL VOLUME 83.9 fl (80-96); MEAN PLT VOLUME 9.8 fl (7.5-11.1); MONO % 6.6 % (3.8-10.2); PLATELET COUNT 264 K/MM3 (134-434); RBC 5.19 M/mm3 (4.00-5.60); RDW 15.5 % (11.9-15.9); WHITE BLOOD COUNT 9.7 K/mm3 (4.0-10.0)
[2018-05-06] MEDS ORDERED: TICAGRELOR 60 MG TABLET PO ONE (08:27)
[2018-05-06] MEDS ORDERED: NITROGLYCERIN SUBLINGUAL 1/150 0.4 MG TAB SL ONE ×2 (08:28→08:45)
[2018-05-06] MEDS ORDERED: HEPARIN NA (PORCINE) 5,000 UNITS/ML 1ML VIAL IVPUSH PRN (08:30)
[2018-05-06 08:32] LABS: INR 0.98 (0.83-1.09); PROTHROMBIN TIME (PATIENT) 11.6 SEC (9.7-13.0)
[2018-05-06] MEDS ORDERED: HEPARIN NA (PORCINE) 5,000 UNITS/ML 1ML VIAL ONE (08:52)
[2018-05-06 08:54] LABS: ALBUMIN 3.5 g/dl (3.4-5.0); ALK PHOS 107 U/L (45-117); ANION GAP 10 MMOL/L (8-16); BILIRUBIN,TOTAL 0.5 mg/dL (0.2-1); BLOOD UREA NITROGEN 34 mg/dL (7-18); CALCIUM 8.6 mg/dL (8.5-10.1); CHLORIDE 100 mmol/L (98-107); CO2 23 mmol/L (21-32); CREATININE 1.7 mg/dL (0.55-1.3); MAGNESIUM 2.2 mg/dL (1.8-2.4); POTASSIUM 4.6 mmol/L (3.5-5.1); SGOT/AST 25 U/L (15-37); SGPT/ALT 17 U/L (13-61); SODIUM 133 mmol/L (136-145); TOT PROT 7.4 g/dl (6.4-8.2)
[2018-05-06] MEDS ORDERED: morphine SULFATE 4 MG/ML VIAL ONE (08:54)
[2018-05-06 08:56] LABS: GLUCOSE,RANDOM 466 mg/dL (74-106)
[2018-05-06] MEDS ORDERED: ONDANSETRON 4 MG/2 ML VIAL ONE (08:58)
[2018-05-06] MEDS ORDERED: ONDANSETRON 4 MG/2 ML VIAL IVPB ONE ×2 (08:58→09:00)
[2018-05-06] MEDS ORDERED: morphine CARPU-JECT 4 MG/1 ML DISP.SYRIN IVPUSH ONE (09:00)
[2018-05-06 09:37] VITALS: BP 122/84; PULSE 93; TEMP 97.5; BMI 31.3
--- NOTE | 2018-05-09 23:50 | EKG ---
Test Reason : Blood Pressure : / mmHG Vent. Rate : 092 BPM Atrial Rate : 092 BPM P-R Int : 182 ms QRS Dur : 076 ms QT Int : 360 ms P-R-T Axes : 029 006 035 degrees QTc Int : 445 ms NORMAL SINUS RHYTHM LOW VOLTAGE QRS ANTEROLATERAL INFARCT (CITED ON OR BEFORE 29-MAR-2017) ABNORMAL ECG WHEN COMPARED WITH ECG OF 06-MAY-2018 07:57, Confirmed by WILL SHAH MD ([id number]) on 05/09/2018 11:50:00 PM Referred By: Confirmed By:WILL SHAH MD
--- NOTE | 2018-05-09 23:50 | EKG ---
Test Reason : Blood Pressure : / mmHG Vent. Rate : 093 BPM Atrial Rate : 093 BPM P-R Int : 180 ms QRS Dur : 076 ms QT Int : 364 ms P-R-T Axes : 007 005 029 degrees QTc Int : 452 ms NORMAL SINUS RHYTHM POSSIBLE LEFT ATRIAL ENLARGEMENT LOW VOLTAGE QRS SEPTAL INFARCT , AGE UNDETERMINED ABNORMAL ECG WHEN COMPARED WITH ECG OF 07-MAR-2018 20:01, Confirmed by WILL SHAH MD ([id number]) on 05/09/2018 11:50:16 PM Referred By: Confirmed By:WILL SHAH MD
== END 2018-05-06 09:15 | disposition short-term general hospital (02) ==
LOC: JER 07:37
PROC: 3E033GC Introduction of Other Therapeutic Substance into Peripheral Vein, Percutaneous Approach (ICD-10-PCS; principal; 2018-05-06)
PROC: 3E033NZ Introduction of Analgesics, Hypnotics, Sedatives into Peripheral Vein, Percutaneous Approach (ICD-10-PCS; 2018-05-06)
DX: I21.3 ST elevation (STEMI) myocardial infarction of unspecified site (principal); I25.2 Old myocardial infarction; Z95.5 Presence of coronary angioplasty implant and graft; E78.5 Hyperlipidemia, unspecified; I12.9 Hypertensive chronic kidney disease with stage 1 through stage 4 chronic kidney disease, or unspecified chronic kidney disease; E11.22 Type 2 diabetes mellitus with diabetic chronic kidney disease; N18.9 Chronic kidney disease, unspecified
CPT/HCPCS: 36415; 71045-TC-FY; 80053; 82550; 82553; 83735; 84484; 85025; 85610; 93005; 93010; 96374; 96375; 99284-25; J1644